=== PATIENT | female | born 1945 | race Caucasian/White ===

== ENCOUNTER 2017-03-26 17:03 | Inpatient (IN) ==
[2017-03-26] MEDS ORDERED: GLUCAGON 1 MG VIAL IM PRN (17:16)
[2017-03-26] MEDS ORDERED: DEXTROSE 50% 25 GM/50 ML VIAL IV PRN (17:16)
--- NOTE | 2017-03-26 17:16 | Cardiothoracic History & Phys ---
History of Present Illness Chief complaint: Chest pain History of present illness: Ms. George is a 71 year old female who presented to [facility] emergency room with chief complaint of chest discomfort. Several months ago she underwent cardiac catheterization by Dr. Lackey who notified two-vessel coronary disease involving the left main and the right posterior descending coronary artery and the patient was considered for bypass surgery but medical therapy was elected at that time. She subsequently had 2 further episodes of chest discomfort but today was more severe. She was admitted to the emergency room where Dr. Lackey was contacted and recommended surgical bypass. Patient is to be admitted for that purpose. Past medical history is significant in that the patient has a history of hypertension and diabetes mellitus she otherwise has been in remarkably good general health. Social history the patient is and lives with her family she does not smoke cigarettes and she has allergies to Augmentin and nonsteroidal anti-inflammatory drugs which cause stomach discomfort. She is also thought to be allergic to Cipro and to sulfa drugs. Her review of systems is noncontributory to the present illness. Physical examination: Patient is well-developed well-nourished white female in no acute distress. Examination of the head eyes ears nose and throat show the pupils are equal react to light and extraocular motions are intact. The oropharynx is benign. Examination of the neck shows that there are no masses and there is no thyromegaly and there are no bruits. Examination chest is clear to percussion and auscultation. Examination of heart shows regular sinus rhythm and there are no murmurs. Examination of the abdomen shows no tenderness and there are no masses or organomegaly palpated. Examination of the extremities shows no cyanosis or edema and the neurological examination is grossly within normal limits. Assessment is coronary artery disease. Plan: Coronary bypass surgery Wednesday.
[2017-03-26] MEDS ORDERED: AMITRIPTYLINE 10 MG TABLET PO PRN (17:27)
[2017-03-26] MEDS ORDERED: NITROGLYCERIN SL 0.4 MG TABLET SL PRN (17:29)
[2017-03-26] MEDS: EZETIMIBE 10 MG TABLET PO SCH (22:11)
[2017-03-26] MEDS: CARVEDILOL 3.125 MG TABLET PO SCH (22:11)
[2017-03-26] MEDS: CEFUROXIME 250 MG TABLET PO SCH (22:12)
[2017-03-26] MEDS: FLUTICASONE 50 MCG NASAL SPRAY 16 GM BOTTLE BOTH NARES SCH (22:12)
[2017-03-26] MEDS: SODIUM CHLORIDE 0.9% 1,000 ML IV SCH (22:12)
[2017-03-26] MEDS: LOSARTAN 50 MG TABLET PO SCH (22:13)
[2017-03-26] MEDS: CHLORHEXIDINE 0.12% ORAL RINSE 60 ML BOTTLE SWISH/SPIT SCH (22:13)
[2017-03-27 03:29] LABS: ABG Base Excess 0.9 MMOL/L (-2.5-2.5); ABG HCO3 25.2 MMOL/L (20-26); ABG Oxygen Saturation 97.1 % (95-100); ABG PCO2 42.3 MM HG (35-48); ABG PH 7.395 (7.35-7.45); ABG PO2 91.2 MM HG (80-95); ABG TCO2 23.2 MMOL/L (23-27); Allen Test Positive; Pt O2 Delivery Device Room Air
[2017-03-27 04:21] LABS: Basophils % 0.4 % (0.0-0.8); Eosinophils # 0.3 10*3/uL (0.0-0.87); Eosinophils % 3.7 % (0.00-10.9); Hematocrit 31.8 VOL% (35.7-47.0); Immature Granulocytes % 0.1 %; Immature Granulocytes Absolute 0.01 #; Lymphocytes # 2.1 10*3/uL (1.4-4.0); Lymphocytes % 31.6 % (21.3-54.2); Mean Corpuscular HGB Conc 34.6 GM/DL (32-36); Mean Corpuscular Hemoglobin 32 PG (27-34); Mean Corpuscular Volume 91.6 FL (87-102); Mean Platelet Volume 9.8 FL (9.6-12.0); Monocytes # 0.7 10*3/uL (0.11-0.8); Monocytes % 9.7 % (1.7-12.7); Neutrophils # 3.7 10*3/uL (1.4-7.4); Neutrophils % 54.5 % (38.7-73.9); Platelet Count 170 T/CUMM (130-400); Red Blood Count 3.47 MC/CUMM (3.8-5.5); Red Cell Distribution Width 12.8 % (9.3-17.3); White Blood Count 6.7 T/CUMM (4-12)
[2017-03-27 04:57] LABS: Albumin 3.5 G/DL (3.4-5.0); Bilirubin,Total 1.3 MG/DL (0.2-1.0); Calcium 8.9 MG/DL (8.5-10.1); Osmolality,Calculated 281.3 MOS/KG (273-304); Potassium 3.9 MMOL/L (3.5-5.1); Total Protein 6.5 G/DL (6.4-8.3)
--- NOTE | 2017-03-27 07:43 | EKG Report ---
Stationary ECG Study [facility] Test Date: 03/27/2017 7:42:58 AM Pat Name: KEVIN RECIO Department: Room: 262 Gender: F Cooling Room Attendant: : 1945 Requested by: Raúl Lopez Order Number: [id number] Reading MD: KATIE MASTERS Intervals [place] Rate: 57 P: 64 AL: 180 QRS: 55 QRSD: 122 T: 87 QT: 461 QTc: 456 Interpretive Statements SINUS RHYTHM MODERATE LEFT ATRIAL ABNORMALITY INTRAVENTRICULAR CONDUCTION DELAY NONSPECIFIC T-WAVE ABNORMALITY Electronically Signed On 03-27-17 08:28:30 CDT by KATIE MASTERS [email or web address]
--- NOTE | 2017-03-27 08:17 | Cardiothoracic Progress Note ---
Cardiothoracic Subjective Interval history: Patient is stable and pain-free. She is breathing comfortably. She is ready for surgery on Wednesday. Exam (Progress Note) - Constitutional Vitals: Period Temp Pulse Resp BP Sys/Campos Pulse Ox Last 24 Hr 96.8 F-98.5 F 59-67 16-18 117-136/58-74 93-97 Result/EKG - Labs CBC & BMP: 03/27/17 03:30 03/27/17 03:30 Labs: Laboratory Results - last 24 hr 03/26/17 03/27/17 03/27/17 20:27 03:05 03:30 WBC 6.7 RBC 3.47 L Hgb 11.0 L Hct 31.8 L MCV 91.6 MCH 32 MCHC 34.6 RDW 12.8 Plt Count 170 MPV 9.8 Neut % (Auto) 54.5 Lymph % (Auto) 31.6 [place] % (Auto) 9.7 Eos % (Auto) 3.7 Baso % (Auto) 0.4 Neut # (Auto) 3.7 Lymph # (Auto) 2.1 [place] # (Auto) 0.7 Eos # (Auto) 0.3 Baso # (Auto) 0.0 Immature Gran % 0.1 Nucleated RBC % 0.0 Immature Gran # 0.01 Nucleated RBCs # 0.00 ABG pH 7.395 ABG pCO2 42.3 ABG pO2 91.2 ABG HCO3 25.2 ABG Total CO2 23.2 ABG O2 Saturation 97.1 ABG Base Excess 0.9 FiO2 21.00 Sodium Potassium Chloride Carbon Dioxide Anion Gap BUN Creatinine GFR Calculation BUN/Creatinine Ratio Glucose POC Glucose 126 H Calculated Osmolality Calcium Total Bilirubin AST ALT Alkaline Phosphatase Total Protein Albumin Globulin Albumin/Globulin Ratio 03/27/17 03:30 WBC RBC Hgb Hct MCV MCH MCHC RDW Plt Count MPV Neut % (Auto) Lymph % (Auto) [place] % (Auto) Eos % (Auto) Baso % (Auto) Neut # (Auto) Lymph # (Auto) [place] # (Auto) Eos # (Auto) Baso # (Auto) Immature Gran % Nucleated RBC % Immature Gran # Nucleated RBCs # ABG pH ABG pCO2 ABG pO2 ABG HCO3 ABG Total CO2 ABG O2 Saturation ABG Base Excess FiO2 Sodium 141 Potassium 3.9 Chloride 107 Carbon Dioxide 24 Anion Gap 13.9 BUN 20 H Creatinine 0.90 GFR Calculation 67 BUN/Creatinine Ratio 22.00 H Glucose 67 L POC Glucose Calculated Osmolality 281.3 Calcium 8.9 Total Bilirubin 1.30 H AST 49 H ALT 47 Alkaline Phosphatase 86 Total Protein 6.5 Albumin 3.5 Globulin 3.0 Albumin/Globulin Ratio 1.1 Quality Measures - VTE Contraindication to Pharmacological VTE Prophylaxis: High Risk of Bleeding
[2017-03-27] MEDS ORDERED: ATORVASTATIN 40 MG TABLET PO SCH (09:00)
[2017-03-27] MEDS ORDERED: MELOXICAM 7.5 MG TABLET PO SCH (09:00)
--- NOTE | 2017-03-27 09:35 | XRay Report ---
Exam: Chest 2 views Date: March 27, 2017 at 6:51 AM Comparison: None Reason: CAD Findings: The cardiac silhouette is upper normal in size. No focal consolidation, pneumothorax or pleural effusion is identified. No acute osseous process is seen. Surgical clips are noted within the right upper abdomen. Impression: No acute cardiopulmonary process is identified. PROCEDURE INTERPRETED AT [facility] DEPARTMENT OF RADIOLOGY Final Report Signed by: Dr. Delbert Foley
[2017-03-27] MEDS: LINACLOTIDE 145 MCG CAPSULE PO SCH (09:48)
[2017-03-27] MEDS: CEFUROXIME 250 MG TABLET PO SCH ×2 (09:49→21:27)
[2017-03-27] MEDS: GLIMEPIRIDE 4 MG TABLET PO SCH ×2 (09:49→17:54)
[2017-03-27] MEDS: ASPIRIN EC 81 MG TABLET PO SCH (09:49)
[2017-03-27] MEDS: ISOSORBIDE MONONITRATE 30 MG TABLET PO SCH (09:49)
[2017-03-27] MEDS: LOSARTAN 50 MG TABLET PO SCH ×2 (09:49→21:27)
[2017-03-27] MEDS: CHLORHEXIDINE 0.12% ORAL RINSE 60 ML BOTTLE SWISH/SPIT SCH ×2 (09:50→21:27)
[2017-03-27] MEDS: FLUTICASONE 50 MCG NASAL SPRAY 16 GM BOTTLE BOTH NARES SCH ×3 (09:50→21:29)
[2017-03-27] MEDS: CARVEDILOL 3.125 MG TABLET PO SCH ×2 (09:50→21:27)
--- NOTE | 2017-03-27 14:10 | Hospitalist Consult Note ---
Assessment and Plan (1) DM2 (diabetes mellitus, type 2) Status: Chronic Assessment and plan: The patient will continue her usual home regimen for now. On Wednesday the patient will start on insulin infusion postoperatively and then transition to subcutaneous insulin once she is taking food again after her surgery. Current Visit: Yes Qualifiers: Diabetes mellitus complication status: with circulatory complication Diabetes mellitus complication detail: with other circulatory complications Diabetes mellitus alf insulin use: with terminal manager use Qualified Code(s) : E11.59 - Type 2 diabetes mellitus with other circulatory complications; Z79.4 - group home (current) use of insulin (2) CAD (coronary artery disease) Status: Acute Current Visit: Yes History of Present Illness - Data of Consult Requesting Physician: Raúl Lakhani - Consult Narrative Reason for consult: Hyperglycemia History of present illness: Ms. George is a 71 year old female the patient has diabetes mellitus type 2 and takes long-acting insulin at night with antidiabetic medications in the daytime. The patient's glucose was well controlled and she anticipates coronary artery bypass grafting on Wednesday. CC: Raúl Lakhani MD - Home Medications and Allergies Home Medications: Home Medications Medication Instructions Recorded Confirmed Type Amitriptyline [Elavil] 10 mg PO BEDTIME 03/26/17 03/26/17 History Aspirin [Aspirin EC] 81 mg PO DAILY 03/26/17 03/27/17 History Atorvastatin [Lipitor] 40 mg PO BEDTIME 03/26/17 03/26/17 History Carvedilol [Coreg] 3.125 mg PO BID 03/26/17 03/26/17 History Cholecalciferol (Vitamin D3) 1,000 unit PO DAILY 03/26/17 03/27/17 History [Vitamin D3] Clopidogrel [Plavix] 75 mg PO DAILY 03/26/17 03/26/17 History Ezetimibe 10 mg PO DAILY 03/26/17 03/27/17 History Fluticasone 50 Mcg Nasal [place] 2 sprays ONE NARE DAILY PRN 03/26/17 03/27/17 History [Flonase Nasal [place]] Glimepiride 4 mg PO BID 03/26/17 03/27/17 History Insulin Detemir [Levemir] 20 units SUBCUT DAILY 03/26/17 03/27/17 History Isosorbide Mononitrate [Imdur] 30 mg PO DAILY 03/26/17 03/27/17 History Linaclotide [Linzess] 1 - 2 capsule PO DAILY 03/26/17 03/27/17 History Losartan [Cozaar] 50 mg PO BID 03/26/17 03/26/17 History Meloxicam 7.5 mg PO QOTHER DAY 03/26/17 03/27/17 History Nitroglycerin [Nitroglycerin SL 0.4 mg SL DIRECTED PRN 03/26/17 03/27/17 History Tab] [place] 3 Acid Ethyl Esters [Lovaza] 1 gm PO BID 03/26/17 03/26/17 History Promethazine Tab [Phenergan Tab] 25 mg PO Q4HR PRN 03/26/17 03/27/17 History cefUROXime axetil [Cefuroxime] 250 mg PO BID 03/26/17 03/27/17 History Allergies/Adverse Reactions: Allergies Allergy/AdvReac Type Severity Reaction Status Date / Time Amoxicillin [From Augmentin] Allergy HIVES Verified 03/26/17 18:50 ciprofloxacin [From Cipro] Allergy HIVES Verified 03/26/17 18:50 clavulanic acid Allergy HIVES Verified 03/26/17 18:50 [From Augmentin] NSAIDS (Non-Steroidal Allergy Abdominal Verified 03/26/17 18:50 Anti-Inflamma Pain dicyclomine AdvReac ANAPHYLAXIS Verified 03/26/17 18:50 Sulfa (Sulfonamide AdvReac HIVES Verified 03/26/17 18:39 Antibiotics) Medical,Surgical,& Family Hx - Medical History Cardio: History of: CAD, Hypertension, [place] Endocrine: History of: Diabetes Mellitus (NIDDM) Gastrointestinal: History of: Diverticulitis/ Diverticulosis Musculoskeletal: History of: Osteoporosis - Surgical History Cardiac Surgeries: Sugical HX of: Cardiac Catheterization HEENT Surgeries: Surgical HX of: Tonsilectomy & Adenoidectomy Patient denies: Eye Surgery Abdominal Surgeries: Surgical HX of: Abdominal Surgery (colon surgery), Appendectomy, Cholecystectomy Reproductive Surgeries: Surgical HX of;: Hysterectomy Orthopedic Surgeries: Surgical HX of;: Total Knee Replacement - Family History Family History: Reports;: Family Diabetes, Family Heart Disease, Family Hypertension, Family Stroke Denies;: Family Anesthesia Reaction, Family Cancer, Family Hematology - Social History Smoking Status: Never smoker Frequency of Alcohol Use: None Type of Drug Use: None Marital Status: Lives With:: Spouse Functional capacity: independent ambulation 12 point system: reviewed and no additional remarkable complaints except as stated Exam - Constitutional Vitals: Period Temp Pulse Resp BP Sys/Campos Pulse Ox Last 24 Hr 96.7 F-98.5 F 59-67 16-18 117-149/58-74 93-97 Exam: Constitutional System: No distress. No tremulousness. Head: Normocephalic, atraumatic. Ears, Nose and Throat System: No evidence of Otitis or Mastoiditis. No epistaxis or discharge Eyes System: Pupils equal, round, and reactive. Extraocular muscles intact. Neck: Supple, without adenopathy, No jugular venous distention. No thyromegaly , neck mass, or prior surgery apparent. Respiratory System: Chest clear to auscultation. Cardiovascular System: Heart with regular rate and rhythm. No murmur. GI System: Abdomen soft, nontender. Normo active bowel sounds present. Musculoskeletal System: limbs with no pedal edema. Full distal pulses. Neurological System: No discernable sensory deficit. No aphasia Psychiatric System: Conversation is rational Results - Labs CBC & BMP: 03/27/17 03:30 03/27/17 03:30 Lab Results: I have reviewed the past 24 hour labs Quality Measures - VTE Contraindication to Pharmacological VTE Prophylaxis: High Risk of Bleeding
[2017-03-27] MEDS: SODIUM CHLORIDE 0.9% 1,000 ML IV SCH (17:55)
[2017-03-27] MEDS: MELOXICAM 7.5 MG TABLET PO SCH (21:27)
[2017-03-27] MEDS: EZETIMIBE 10 MG TABLET PO SCH (21:27)
[2017-03-27] MEDS: ATORVASTATIN 40 MG TABLET PO SCH (21:27)
--- NOTE | 2017-03-28 08:00 | Cardiothoracic Progress Note ---
Cardiothoracic Subjective Interval history: Ready for surgery in the morning. Exam (Progress Note) - Constitutional Vitals: Period Temp Pulse Resp BP Sys/Campos Pulse Ox Last 24 Hr 97.2 F-98.2 F 60-71 16-20 130-149/65-97 90-97 Result/EKG - Labs CBC & BMP: 03/27/17 03:30 03/27/17 03:30 Labs: Laboratory Results - last 24 hr 03/27/17 03/27/17 03/27/17 07:37 12:00 16:37 POC Glucose 99 177 H 151 H 03/27/17 21:58 POC Glucose 184 H Quality Measures - VTE Contraindication to Pharmacological VTE Prophylaxis: High Risk of Bleeding
[2017-03-28] MEDS: LOSARTAN 50 MG TABLET PO SCH ×2 (09:28→21:32)
[2017-03-28] MEDS: GLIMEPIRIDE 4 MG TABLET PO SCH ×2 (09:28→17:11)
[2017-03-28] MEDS: ASPIRIN EC 81 MG TABLET PO SCH (09:28)
[2017-03-28] MEDS: CARVEDILOL 3.125 MG TABLET PO SCH ×2 (09:28→21:32)
[2017-03-28] MEDS: ISOSORBIDE MONONITRATE 30 MG TABLET PO SCH (09:28)
[2017-03-28] MEDS: CEFUROXIME 250 MG TABLET PO SCH ×2 (09:29→21:32)
[2017-03-28] MEDS: CHLORHEXIDINE 0.12% ORAL RINSE 60 ML BOTTLE SWISH/SPIT SCH ×2 (09:29→21:33)
[2017-03-28] MEDS: FLUTICASONE 50 MCG NASAL SPRAY 16 GM BOTTLE BOTH NARES SCH ×2 (09:29→21:34)
[2017-03-28] MEDS: LINACLOTIDE 145 MCG CAPSULE PO SCH (09:29)
--- NOTE | 2017-03-28 10:28 | Hospitalist Progress Note ---
Assessment and Plan (1) DM2 (diabetes mellitus, type 2) Status: Chronic Assessment and plan: The patient will continue her usual home regimen for now. I started the patient on sliding scale insulin today. The patient will start on insulin infusion postoperatively and then transition to subcutaneous insulin once she is taking food again after her surgery. Current Visit: Yes Qualifiers: Diabetes mellitus complication status: with circulatory complication Diabetes mellitus complication detail: with other circulatory complications Diabetes mellitus fdc insulin use: with terminal manager use Qualified Code(s) : E11.59 - Type 2 diabetes mellitus with other circulatory complications; Z79.4 - rat exterminator (current) use of insulin (2) CAD (coronary artery disease) Status: Acute Current Visit: Yes Hospitalist: Subjective Interval history: The patient has no new events today. Glucose has begun to increase after Metformin was discontinued Exam - Constitutional Vitals: Period Temp Pulse Resp BP Sys/Campos Pulse Ox Last 24 Hr 97.2 F-98.4 F 60-71 16-20 129-149/63-97 90-97 Exam: Constitutional System: No distress. No tremulousness. Head: Normocephalic, atraumatic. Ears, Nose and Throat System: No evidence of Otitis or Mastoiditis. No epistaxis or discharge Eyes System: Pupils equal, round, and reactive. Extraocular muscles intact. Neck: Supple, without adenopathy, No jugular venous distention. No thyromegaly , neck mass, or prior surgery apparent. Respiratory System: Chest clear to auscultation. Cardiovascular System: Heart with regular rate and rhythm. No murmur. GI System: Abdomen soft, nontender. Normo active bowel sounds present. Musculoskeletal System: limbs with no pedal edema. Full distal pulses. Neurological System: No discernable sensory deficit. No aphasia Psychiatric System: Conversation is rational Results - Labs CBC & BMP: 03/27/17 03:30 03/27/17 03:30 Lab Results: I have reviewed the past 24 hour labs Quality Measures - VTE Contraindication to Pharmacological VTE Prophylaxis: High Risk of Bleeding
[2017-03-28] MEDS: INSULIN LISPRO 100 UNIT/ML SUBCUT SCH ×3 (12:19→21:34)
[2017-03-28] MEDS: CHLORHEXIDINE 4% SOLN 118 ML BOTTLE TOP SCH ×2 (15:00→21:34)
[2017-03-28] MEDS ORDERED: CEFUROXIME INJ 1,500 MG in SODIUM CHLORIDE 0.9% 100 ML IV ONE (17:16)
[2017-03-28] MEDS: ATORVASTATIN 40 MG TABLET PO SCH (21:32)
[2017-03-28] MEDS: EZETIMIBE 10 MG TABLET PO SCH (21:32)
[2017-03-28] MEDS: MELOXICAM 7.5 MG TABLET PO SCH (21:34)
[2017-03-28] MEDS: SODIUM CHLORIDE 0.9% 1,000 ML IV SCH (21:36)
[2017-03-29] MEDS: CHLORHEXIDINE 4% SOLN 118 ML BOTTLE TOP SCH ×2 (04:25→11:17)
[2017-03-29] MEDS ORDERED: TISSUE ADHESIVE 1 EACH APPLICATOR TOP ONE (04:37)
[2017-03-29] MEDS ORDERED: PAPAVERINE 60 MG/2 ML VIAL ONE (04:37)
[2017-03-29] MEDS ORDERED: VANCOMYCIN 1,000 MG VIAL ONE (04:38)
[2017-03-29 05:14] LABS: Basophils % 0.5 % (0.0-0.8); Eosinophils # 0.2 10*3/uL (0.0-0.87); Eosinophils % 3.4 % (0.00-10.9); Hematocrit 33.6 VOL% (35.7-47.0); Hemoglobin 11.7 GM/DL (12.0-16.0); Immature Granulocytes % 0.3 %; Immature Granulocytes Absolute 0.02 #; Lymphocytes # 2.4 10*3/uL (1.4-4.0); Lymphocytes % 36.3 % (21.3-54.2); Mean Corpuscular HGB Conc 34.8 GM/DL (32-36); Mean Corpuscular Hemoglobin 32 PG (27-34); Mean Corpuscular Volume 91.8 FL (87-102); Mean Platelet Volume 9.4 FL (9.6-12.0); Monocytes # 0.7 10*3/uL (0.11-0.8); Monocytes % 9.9 % (1.7-12.7); Neutrophils # 3.3 10*3/uL (1.4-7.4); Neutrophils % 49.6 % (38.7-73.9); Platelet Count 165 T/CUMM (130-400); Red Blood Count 3.66 MC/CUMM (3.8-5.5); Red Cell Distribution Width 12.9 % (9.3-17.3); White Blood Count 6.6 T/CUMM (4-12)
[2017-03-29] MEDS ORDERED: LORazepam 1 MG TABLET PO ONE (05:30)
[2017-03-29] MEDS ORDERED: FAMOTIDINE 20 MG TABLET PO ONE (05:30)
[2017-03-29 05:52] LABS: Calcium 8.7 MG/DL (8.5-10.1); Magnesium 1.8 MG/DL (1.8-2.4); Osmolality,Calculated 284.1 MOS/KG (273-304); Potassium 4.3 MMOL/L (3.5-5.1)
[2017-03-29] MEDS ORDERED: ISOSORBIDE MONONITRATE 30 MG TABLET PO ONE (06:00)
[2017-03-29] MEDS ORDERED: LOSARTAN 50 MG TABLET PO ONE (06:00)
[2017-03-29] MEDS ORDERED: CARVEDILOL 3.125 MG TABLET PO ONE (06:00)
[2017-03-29] MEDS ORDERED: CEFUROXIME INJ 1,500 MG in SODIUM CHLORIDE 0.9% 100 ML IV ONE (06:00)
[2017-03-29] MEDS ORDERED: ONDANSETRON 4 MG/2 ML VIAL IV ONE (06:04)
[2017-03-29] MEDS ORDERED: ONDANSETRON 4 MG/2 ML VIAL ONE (06:09)
--- NOTE | 2017-03-29 06:14 | Cardiothoracic Progress Note ---
Cardiothoracic Subjective Interval history: Patient is ready for surgery this morning. Exam (Progress Note) - Constitutional Vitals: Period Temp Pulse Resp BP Sys/Campos Pulse Ox Last 24 Hr 97.3 F-98.6 F 61-81 16-20 119-129/59-79 95-97 Result/EKG - Labs CBC & BMP: 03/29/17 05:06 03/29/17 05:06 Labs: Laboratory Results - last 24 hr 03/28/17 03/28/17 03/28/17 09:27 11:45 16:09 WBC RBC Hgb Hct MCV MCH MCHC RDW Plt Count MPV Neut % (Auto) Lymph % (Auto) [place] % (Auto) Eos % (Auto) Baso % (Auto) Neut # (Auto) Lymph # (Auto) [place] # (Auto) Eos # (Auto) Baso # (Auto) Immature Gran % Nucleated RBC % Immature Gran # Nucleated RBCs # Sodium Potassium Chloride Carbon Dioxide Anion Gap BUN Creatinine GFR Calculation BUN/Creatinine Ratio Glucose POC Glucose 197 H 162 H Calculated Osmolality Calcium Magnesium Blood Type A NEGATIVE Antibody Screen Negative Crossmatch See Detail 03/28/17 03/28/17 03/28/17 16:12 16:15 21:28 WBC RBC Hgb Hct MCV MCH MCHC RDW Plt Count MPV Neut % (Auto) Lymph % (Auto) [place] % (Auto) Eos % (Auto) Baso % (Auto) Neut # (Auto) Lymph # (Auto) [place] # (Auto) Eos # (Auto) Baso # (Auto) Immature Gran % Nucleated RBC % Immature Gran # Nucleated RBCs # Sodium Potassium Chloride Carbon Dioxide Anion Gap BUN Creatinine GFR Calculation BUN/Creatinine Ratio Glucose POC Glucose 182 H 189 H Calculated Osmolality Calcium Magnesium Blood Type A NEGATIVE Antibody Screen Crossmatch 03/29/17 03/29/17 03/29/17 05:06 05:06 05:35 WBC 6.6 RBC 3.66 L Hgb 11.7 L Hct 33.6 L MCV 91.8 MCH 32 MCHC 34.8 RDW 12.9 Plt Count 165 MPV 9.4 L Neut % (Auto) 49.6 Lymph % (Auto) 36.3 [place] % (Auto) 9.9 Eos % (Auto) 3.4 Baso % (Auto) 0.5 Neut # (Auto) 3.3 Lymph # (Auto) 2.4 [place] # (Auto) 0.7 Eos # (Auto) 0.2 Baso # (Auto) 0.0 Immature Gran % 0.3 Nucleated RBC % 0.0 Immature Gran # 0.02 Nucleated RBCs # 0.00 Sodium 142 Potassium 4.3 Chloride 108 H Carbon Dioxide 27 Anion Gap 11.3 BUN 16 Creatinine 1.00 GFR Calculation 59 BUN/Creatinine Ratio 16.00 Glucose 115 H POC Glucose 109 H Calculated Osmolality 284.1 Calcium 8.7 Magnesium 1.8 Blood Type Antibody Screen Crossmatch Quality Measures - VTE Contraindication to Pharmacological VTE Prophylaxis: High Risk of Bleeding
[2017-03-29] MEDS ORDERED: ETOMIDATE 20 MG/10 ML VIAL IV ONE (06:46)
[2017-03-29] MEDS ORDERED: VECURONIUM 10 MG VIAL IV ONE (06:46)
[2017-03-29] MEDS ORDERED: AMINOCAPROIC ACID 5,000 MG/20 ML VIAL IV ONE (06:46)
[2017-03-29] MEDS ORDERED: NITROGLYCERIN 50 MG/250 ML BOTTLE IV ONE (06:46)
[2017-03-29] MEDS ORDERED: CALCIUM CHLORIDE 1,000 MG/10 ML SYRINGE IV ONE (06:46)
[2017-03-29] MEDS ORDERED: PHENYLEPHRINE 20 MG/250 ML PREMIX IV ONE (06:46)
[2017-03-29 07:31] LABS: ABG Base Excess -2.8 MMOL/L (-2.5-2.5); ABG HCO3 22.1 MMOL/L (20-26); ABG Oxygen Saturation 99.9 % (95-100); ABG PCO2 40.3 MM HG (35-48); ABG PH 7.355 (7.35-7.45); ABG TCO2 20.3 MMOL/L (23-27); Glucose Heart Surgery 111 MG/DL (74-106); Hematocrit Heart Surgery 34.1 PERCENT (37-47); PCO2 Patient Temp Arterial 40.3 MMHG; PH Patient Temp Arterial 7.355; Patient Temperature 37 CELCIUS; Potassium Heart/CVR 3.9 MMOL/L (3.5-5.1); Sodium Heart/CVR 140 MMOL/L (135-145)
[2017-03-29 07:55] LABS: Apearance,Urine CLEAR (Clear); Bilirubin,Urine Negative (Negative); Blood, Urine Negative (Negative); Glucose,Urine (UA) Negative (Negative); Ketones,Urine Negative (Negative); Mucus,Urine Occasional /LPF (Occasional); Nitrite,Urine Negative (Negative); Protein,Urine Negative; RBC,Urine <1 /HPF (0-4); Squamous Epithelial Cell,Urine Occasional /HPF (0-10); Urine Color Straw (Yellow); Urine Specific Gravity 1.006 (1.001-1.035); Urine Urobilinogen < 2.0 EU/DL (0.2-1.0); WBC,Urine <1 /HPF (0-6)
[2017-03-29] MEDS ORDERED: NITROPRUSSIDE 50 MG/2 ML VIAL ONE (08:24)
[2017-03-29] MEDS ORDERED: POTASSIUM CHLORIDE RIDER 100 ML IV ONE (08:25)
[2017-03-29] MEDS ORDERED: ALBUMIN 5% 12.5 GM/250 ML VIAL IV ONE (08:25)
[2017-03-29] MEDS ORDERED: PHENYLEPHRINE DRIP 40 MG/250 ML PREMIX IV ONE (08:25)
[2017-03-29 08:52] LABS: Hematocrit Heart Surgery 21.4 PERCENT (37-47); Hemoglobin Heart Surgery 6.8 G/DL (12.0-16.0); PCO2 Patient Temp Venous 36.9 MM HG; PH Patient Temp Venous 7.414; PO2 Patient Temp Venous 41.3 MM HG; Potassium Heart/CVR 5.1 MMOL/L (3.5-5.1); VBG Base Excess -0.5 MEQ/L (0-4); VBG HCO3 23.9 MEQ/L (24-28); VBG Oxygen Saturation 86.2 %; VBG PCO2 42.7 MMHG (41-51); VBG PH 7.37; VBG PO2 50.6 MMHG (17-40)
[2017-03-29] MEDS ORDERED: INSULIN REGULAR 100 UNIT/ML ONE (09:04)
[2017-03-29] MEDS ORDERED: INSULIN REGULAR DRIP 100 ML IV ONE (09:06)
[2017-03-29 09:28] LABS: Hematocrit Heart Surgery 23.8 PERCENT (37-47); Hemoglobin Heart Surgery 7.6 G/DL (12.0-16.0); PCO2 Patient Temp Venous 35.3 MM HG; PH Patient Temp Venous 7.43; PO2 Patient Temp Venous 36.5 MM HG; Potassium Heart/CVR 4.8 MMOL/L (3.5-5.1); VBG Base Excess -0.4 MEQ/L (0-4); VBG HCO3 23.8 MEQ/L (24-28); VBG Oxygen Saturation 78.7 %; VBG PCO2 38.9 MMHG (41-51); VBG PH 7.401
[2017-03-29 09:49] LABS: ABG Base Excess -1.4 MMOL/L (-2.5-2.5); ABG HCO3 23.3 MMOL/L (20-26); ABG PCO2 35.4 MM HG (35-48); ABG PH 7.416 (7.35-7.45); ABG TCO2 21.1 MMOL/L (23-27); Glucose Heart Surgery 271 MG/DL (74-106); Hematocrit Heart Surgery 26.7 PERCENT (37-47); Hemoglobin Heart Surgery 8.6 G/DL (12.0-16.0); Ionized Calcium Arterial 1.18 MMOL/L (1.21-1.46); PCO2 Patient Temp Arterial 35.4 MMHG; PH Patient Temp Arterial 7.416; Patient Temperature 37 CELCIUS; Potassium Heart/CVR 3.9 MMOL/L (3.5-5.1); Sodium Heart/CVR 132 MMOL/L (135-145)
[2017-03-29] MEDS ORDERED: CALCIUM CHLORIDE 1,000 MG/10 ML SYRINGE IV PRN (10:23)
[2017-03-29] MEDS ORDERED: DEXTROSE 50% 25 GM/50 ML VIAL IV PRN ×2 (10:23)
[2017-03-29] MEDS ORDERED: NITROPRUSSIDE 100 MG in DEXTROSE 5% 250 ML IV PRN (10:23)
[2017-03-29] MEDS ORDERED: MORPHINE 10 MG/1 ML VIAL IV PRN (10:23)
[2017-03-29] MEDS ORDERED: ACETAMINOPHEN 650 MG SUPP RECTAL PRN (10:23)
[2017-03-29] MEDS ORDERED: INSULIN REGULAR 100 UNIT/ML IV ONE (10:23)
[2017-03-29] MEDS ORDERED: MIDAZOLAM 2 MG/2 ML VIAL IV PRN (10:23)
[2017-03-29] MEDS ORDERED: PHENYLEPHRINE DRIP 40 MG/250 ML PREMIX IV PRN (10:23)
[2017-03-29] MEDS ORDERED: VECURONIUM 10 MG VIAL IV PRN ×2 (10:23)
[2017-03-29] MEDS ORDERED: MAGNESIUM SULF RIDER 4 GM in PREMIX 1 EACH IV PRN (10:23)
[2017-03-29] MEDS ORDERED: MIDAZOLAM 10 MG/2 ML VIAL IV PRN (10:23)
[2017-03-29] MEDS ORDERED: ONDANSETRON 4 MG/2 ML VIAL IV PRN (10:23)
[2017-03-29] MEDS ORDERED: INSULIN REGULAR 100 UNIT/ML IV PRN (10:23)
[2017-03-29] MEDS ORDERED: LACTATED RINGERS 250 ML IV PRN (10:23)
[2017-03-29] MEDS ORDERED: MAGNESIUM SULF RIDER 2 GM in PREMIX 1 EACH IV PRN (10:23)
[2017-03-29] MEDS ORDERED: PROTAMINE SULFATE 50 MG/5 ML VIAL IV ONE ×2 (10:24→10:54)
[2017-03-29] MEDS ORDERED: SUFentanil 250 MCG/5 ML AMP ONE (10:29)
[2017-03-29] MEDS ORDERED: SODIUM CHLORIDE 0.9% 250 ML IV ONE (10:29)
[2017-03-29] MEDS ORDERED: ePHEDrine 50 MG/ML AMP ONE (10:29)
[2017-03-29] MEDS ORDERED: SEVOFLURANE 1 UNIT/15 MINUTE INH ONE (10:29)
[2017-03-29] MEDS ORDERED: SODIUM CHLORIDE 0.9% 1,000 ML IV ONE (10:29)
--- NOTE | 2017-03-29 10:29 | Operative Note ---
Date of procedure: 03/29/17 Pre-op diagnosis: Coronary artery disease Post-op diagnosis: same Procedure: Procedure: Coronary bypass grafting 2 with a left internal mammary graft to the anterior descending coronary artery the saphenous vein graft to the posterior descending coronary artery. Findings: The patient is a 71-year-old lady who was admitted to [facility] with substernal chest discomfort. She had undergone catheterization some 5 months prior to her admission which had shown significant coronary disease but medical treatment was elected. Because of recurrence of chest pain patient was advised to have bypass surgery. The time of surgery left ventricular function was noted to be essentially within normal limits. The left internal mammary was grafted to a large anterior descending coronary artery which was free of disease at the site of anastomosis. Saphenous vein graft was placed to the right posterior descending coronary artery which likewise was a large vessel free of disease at the site of anastomosis. Patient tolerated procedure well and was returned to recovery in satisfactory condition. Procedure: Patient was brought to the operating room placed on the operating table in the supine position. After satisfactory induction of general anesthesia the chest abdomen and legs were prepped and draped in sterile fashion. Greater saphenous vein was harvested from the right lower leg and prepared is an arterial graft. Incision in the leg was closed with 3-0 Monocryl in the subcutaneous tissue and 3-0 subcuticular Monocryl. Standard sternotomy incision was made and the sternum was divided and the heart suspended in a pericardial cradle. The left internal mammary was dissected free from its position in the anterior chest wall and prepared is an arterial graft. Patient was prepared for cardiopulmonary bypass with systemic heparinization cannulation of the ascending aorta and right atrium. Cardiopulmonary bypass was begun and the aorta was crossclamped and the heart arrested with cardioplegia solution injected into the aortic root. Heart was protected during the period of crossclamping with topical saline slush. Distal anastomoses were constructed as noted above and then the aorta was unclamped reestablishing cardiac action. The proximal anastomosis was constructed between the inflow end of the saphenous vein graft in the ascending aorta. Following this the patient was weaned from cardiopulmonary bypass without difficulty and heparin effect reversed with protamine. Decannulation was carried out in a defects in the ascending aorta and right atrium closed with 3- 0 Prolene. Operative field was inspected for hemostasis and this was considered adequate incision was closed with interrupted stainless steel wire and the sternum 0 Monopril in the presternal fascia and 3-0 subcuticular Monocryl. 2 chest tubes were left in the anterior mediastinum and brought out through separate stab incisions. Sterile dressings were applied the patient was returned to recovery in satisfactory condition. Anesthesia: SYLVIEA Surgeon / Physician: Raúl Lakhani Estimated blood loss: other (Unable to determine because of cardiopulmonary bypass) Condition: stable Disposition: ICU Results - Labs CBC & BMP: 03/29/17 09:48 03/29/17 05:06 Discharge Plan - Discharge Medications No Action [place] 3 Acid Ethyl Esters [Lovaza] 1 gm PO BID Losartan [Cozaar] 50 mg PO BID Clopidogrel [Plavix] 75 mg PO DAILY Carvedilol [Coreg] 3.125 mg PO BID Atorvastatin [Lipitor] 40 mg PO BEDTIME cefUROXime axetil [Cefuroxime] 250 mg PO BID Promethazine Tab [Phenergan Tab] 25 mg PO Q4HR PRN PRN Reason: Nausea Meloxicam 7.5 mg PO QOTHER DAY Linaclotide [Linzess] 1 - 2 capsule PO DAILY Isosorbide Mononitrate [Imdur] 30 mg PO DAILY Insulin Detemir [Levemir] 20 units SUBCUT DAILY Fluticasone 50 Mcg Nasal [place] [Flonase Nasal [place]] 2 sprays ONE NARE DAILY PRN PRN Reason: Allergy Symptoms Ezetimibe 10 mg PO DAILY Cholecalciferol (Vitamin D3) [Vitamin D3] 1,000 unit PO DAILY Amitriptyline [Elavil] 10 mg PO BEDTIME Nitroglycerin [Nitroglycerin SL Tab] 0.4 mg SL DIRECTED PRN PRN Reason: Chest Pain Glimepiride 4 mg PO BID Aspirin [Aspirin EC] 81 mg PO DAILY - Follow Up or Referral - Forms/Instructions
[2017-03-29] MEDS ORDERED: SODIUM CHLORIDE 0.45% 1,000 ML IV SCH ×2 (10:30)
[2017-03-29] MEDS ORDERED: INSULIN REGULAR DRIP 100 ML IV SCH (10:30)
[2017-03-29] MEDS ORDERED: HEPARIN/NACL 0.9% 2 UNITS/ML 500 ML IV ONE (10:30)
[2017-03-29 10:55] LABS: ABG Base Excess -0.7 MMOL/L (-2.5-2.5); ABG HCO3 23.9 MMOL/L (20-26); ABG Oxygen Saturation 99.2 % (95-100); ABG PCO2 38.9 MM HG (35-48); ABG PH 7.398 (7.35-7.45); ABG TCO2 21.8 MMOL/L (23-27); Glucose Heart Surgery 229 MG/DL (74-106); Hematocrit Heart Surgery 31.2 PERCENT (37-47); Hemoglobin Heart Surgery 10.1 G/DL (12.0-16.0); Potassium Heart/CVR 3.3 MMOL/L (3.5-5.1)
[2017-03-29 10:57] LABS: Basophils % 0.2 % (0.0-0.8); Eosinophils # 0.1 10*3/uL (0.0-0.87); Eosinophils % 1.1 % (0.00-10.9); Hematocrit 27.7 VOL% (35.7-47.0); Hemoglobin 9.8 GM/DL (12.0-16.0); Immature Granulocytes % 0.7 %; Immature Granulocytes Absolute 0.08 #; Lymphocytes # 1.9 10*3/uL (1.4-4.0); Lymphocytes % 17.4 % (21.3-54.2); Mean Corpuscular HGB Conc 35.4 GM/DL (32-36); Mean Corpuscular Hemoglobin 32 PG (27-34); Mean Corpuscular Volume 91.1 FL (87-102); Mean Platelet Volume 9.5 FL (9.6-12.0); Monocytes # 0.7 10*3/uL (0.11-0.8); Monocytes % 6.2 % (1.7-12.7); Neutrophils % 74.4 % (38.7-73.9); Platelet Count 149 T/CUMM (130-400); Red Blood Count 3.04 MC/CUMM (3.8-5.5); Red Cell Distribution Width 12.9 % (9.3-17.3); White Blood Count 10.7 T/CUMM (4-12)
[2017-03-29] MEDS: POTASSIUM CHLORIDE RIDER 20 MEQ in PREMIX 1 EACH IV PRN ×5 (11:05→23:12)
[2017-03-29 11:09] LABS: INR 1.6; PT Patient Result 17.2 SECS; Partial Thromboplastin Time 30.3 SECS (0-40)
[2017-03-29] MEDS: ALBUMIN 5% 12.5 GM in PREMIX 1 EACH IV PRN ×2 (11:15→11:58)
[2017-03-29] MEDS: LOSARTAN 50 MG TABLET PO SCH (11:17)
[2017-03-29] MEDS: CHLORHEXIDINE 0.12% ORAL RINSE 60 ML BOTTLE SWISH/SPIT SCH ×2 (11:17→20:00)
[2017-03-29] MEDS: ISOSORBIDE MONONITRATE 30 MG TABLET PO SCH (11:17)
[2017-03-29] MEDS: FLUTICASONE 50 MCG NASAL SPRAY 16 GM BOTTLE BOTH NARES SCH (11:17)
[2017-03-29 11:27] LABS: Albumin 3.7 G/DL (3.4-5.0); Bilirubin,Total 1.2 MG/DL (0.2-1.0); Calcium 8.6 MG/DL (8.5-10.1); Magnesium 2.1 MG/DL (1.8-2.4); Osmolality,Calculated 284.5 MOS/KG (273-304); Potassium 3.4 MMOL/L (3.5-5.1); Total Protein 6.1 G/DL (6.4-8.3)
[2017-03-29 11:32] LABS: Hypochromasia Slight
[2017-03-29 11:36] LABS: CKMB % 7.3 %
[2017-03-29 11:39] LABS: Troponin I Only 3.2 NG/ML (0.00-0.045)
--- NOTE | 2017-03-29 12:05 | XRay Report ---
Portable chest Date: 03/29/2017 Clinical history: Line placement Comparison: 03/27/2017 Technique: Portable AP sitting chest Findings: The heart is minimally enlarged with interval median sternotomy. The endotracheal tube, nasogastric tube and mediastinal chest tubes are in satisfactory position. The tip of the right IJ CV line projects in the right atrium. No evidence for pneumothorax. Minimal edema/atelectasis. Prior cholecystectomy. Impression: Interval median sternotomy with support devices in satisfactory position. No definite pneumothorax. Minimal edema/atelectasis. PROCEDURE INTERPRETED AT [facility] DEPARTMENT OF RADIOLOGY Final Report Signed by: Dr. Roshni Kong
[2017-03-29 12:39] LABS: ABG Base Excess -1.3 MMOL/L (-2.5-2.5); ABG HCO3 23.4 MMOL/L (20-26); ABG Oxygen Saturation 99.4 % (95-100); ABG PCO2 41.3 MM HG (35-48); ABG PH 7.371 (7.35-7.45); ABG TCO2 22.1 MMOL/L (23-27); Glucose Heart Surgery 180 MG/DL (74-106); Hematocrit Heart Surgery 27.7 PERCENT (37-47); Hemoglobin Heart Surgery 8.9 G/DL (12.0-16.0); Potassium Heart/CVR 3.8 MMOL/L (3.5-5.1)
[2017-03-29] MEDS ORDERED: VANCOMYCIN INJ 1,000 MG in SODIUM CHLORIDE 0.9% 250 ML IV SCH (13:00)
--- NOTE | 2017-03-29 13:22 | Anesthesia Procedures ---
Anesthesia Procedures - Arterial Line Consent obtained arterial line: written consent Time out performed arterial line: Yes Size (Gauge): 20 Technique used arterial line: guide wire technique Post-Procedure: line sutured into place Patient tolerated procedure arterial line: well Complications art line: none Site: right
[2017-03-29] MEDS: POTASSIUM CHLORIDE RIDER 10 MEQ in PREMIX 1 EACH IV PRN ×2 (13:28→16:11)
[2017-03-29 14:12] LABS: ABG Base Excess 0.4 MMOL/L (-2.5-2.5); ABG HCO3 24.8 MMOL/L (20-26); ABG Oxygen Saturation 98.9 % (95-100); ABG PCO2 41.2 MM HG (35-48); ABG PH 7.396 (7.35-7.45); ABG TCO2 23.7 MMOL/L (23-27); Glucose Heart Surgery 155 MG/DL (74-106); Hematocrit Heart Surgery 24.2 PERCENT (37-47); Hemoglobin Heart Surgery 7.8 G/DL (12.0-16.0); Potassium Heart/CVR 3.9 MMOL/L (3.5-5.1)
[2017-03-29 15:33] LABS: Hematocrit 23.9 VOL% (35.7-47.0); Hemoglobin 8.3 GM/DL (12.0-16.0)
--- NOTE | 2017-03-29 16:00 | Hospitalist Progress Note ---
Assessment and Plan (1) DM2 (diabetes mellitus, type 2) Status: Chronic Assessment and plan: Continue sliding scale insulin and Accu-Cheks. 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 No acute events overnight. Case discussed with nursing staff. Labs reviewed. Seen postoperatively in cardiovascular recovery. Exam - Constitutional Vitals: Period Temp Pulse Resp BP Sys/Campos Pulse Ox Last 24 Hr 96.1 F-99.2 F 61-92 10-20 96-130/52-70 95-100 Exam: Patient is intubated and sedated. Chest tubes in place. Constitutional System: No distress. No tremulousness. Head: Normocephalic, atraumatic. Ears, Nose and Throat System: No pain or tenderness. No epistaxis or discharge Eyes System: Pupils equal, round, and reactive. Extraocular muscles intact. Neck: Supple, without adenopathy, No jugular venous distention. No thyromegaly, neck mass, or prior surgery apparent. Respiratory System: Chest clear to auscultation. Cardiovascular System: Heart with regular rate and rhythm. No murmur. GI System: Abdomen soft, nontender. Normo active bowel sounds present. Musculoskeletal System: limbs with no pedal edema. Full distal pulses. Neurological System: Unable to assess secondary to sedation Psychiatric System: Unable to assess secondary to sedation postoperatively Results - Labs CBC & BMP: 03/29/17 15:21 03/29/17 10:45 Lab Results: I have reviewed the past 24 hour labs Quality Measures - VTE Contraindication to Pharmacological VTE Prophylaxis: High Risk of Bleeding
--- NOTE | 2017-03-29 16:20 | XRay Report ---
Portable chest Date: 03/29/2017 Clinical history: Postop, evaluate for bleeding Comparison: 03/29/2017 Technique: Portable AP sitting chest Findings: Stable cardiomegaly with recent median sternotomy. The support devices are stable in position with no definite pneumothorax. Minimally larger left pleural effusion with adjacent atelectasis/edema. Impression: Status post median sternotomy with no definite pneumothorax. Stable supportive devices. Minimally larger small left pleural effusion with residual minimal atelectasis/edema at the lung bases. PROCEDURE INTERPRETED AT [facility] DEPARTMENT OF RADIOLOGY Final Report Signed by: Dr. oRshni Kong
[2017-03-29] MEDS ORDERED: SODIUM CHLORIDE 0.9% 250 ML IV PRN (16:34)
[2017-03-29] MEDS: KETOROLAC 30 MG/1 ML VIAL IV SCH ×3 (17:05→22:32)
[2017-03-29] MEDS: MORPHINE 2 MG/1 ML SYRINGE IV PRN (17:48)
[2017-03-29] MEDS: VANCOMYCIN INJ 1,000 MG in SODIUM CHLORIDE 0.9% 250 ML IV SCH (17:53)
[2017-03-29 18:10] LABS: Hemoglobin 10.6 GM/DL (12.0-16.0)
[2017-03-29] MEDS ORDERED: CEFUROXIME INJ 1,500 MG in SODIUM CHLORIDE 0.9% 100 ML IV SCH (18:24)
[2017-03-29 18:39] LABS: Calcium 8.6 MG/DL (8.5-10.1); Potassium 4.2 MMOL/L (3.5-5.1)
[2017-03-29 18:44] LABS: CKMB % 4.2 %
[2017-03-29 18:51] LABS: Troponin I Only 3.31 NG/ML (0.00-0.045)
[2017-03-29] MEDS ORDERED: FUROSEMIDE 40 MG/4 ML VIAL IV PRN (20:26)
[2017-03-29 23:04] LABS: ABG Base Excess 0.8 MMOL/L (-2.5-2.5); ABG Oxygen Saturation 97.5 % (95-100); ABG PCO2 38.4 MM HG (35-48); ABG PH 7.431 (7.35-7.45); ABG PO2 101.4 MM HG (80-95); ABG TCO2 26.2 MMOL/L (23-27); Glucose Heart Surgery 100 MG/DL (74-106); Potassium Heart/CVR 3.8 MMOL/L (3.5-5.1)
[2017-03-30] MEDS: POTASSIUM CHLORIDE RIDER 10 MEQ in PREMIX 1 EACH IV PRN (00:18)
[2017-03-30 03:11] LABS: ABG Base Excess 0.5 MMOL/L (-2.5-2.5); ABG HCO3 23.3 MMOL/L (20-26); ABG Oxygen Saturation 97.3 % (95-100); ABG PCO2 31.5 MM HG (35-48); ABG PH 7.486 (7.35-7.45); ABG PO2 92.7 MM HG (80-95); ABG TCO2 24.2 MMOL/L (23-27); Basophils % 0.1 % (0.0-0.8); Glucose Heart Surgery 136 MG/DL (74-106); Hematocrit 33.1 VOL% (35.7-47.0); Hemoglobin 11.3 GM/DL (12.0-16.0); Hemoglobin Heart Surgery 11.9 G/DL (12.0-16.0); Immature Granulocytes % 0.4 %; Immature Granulocytes Absolute 0.06 #; Lymphocytes # 0.8 10*3/uL (1.4-4.0); Lymphocytes % 5.5 % (21.3-54.2); Mean Corpuscular HGB Conc 34.1 GM/DL (32-36); Mean Corpuscular Hemoglobin 30 PG (27-34); Mean Corpuscular Volume 88.3 FL (87-102); Mean Platelet Volume 10.3 FL (9.6-12.0); Monocytes # 0.5 10*3/uL (0.11-0.8); Monocytes % 3.4 % (1.7-12.7); Neutrophils # 12.6 10*3/uL (1.4-7.4); Neutrophils % 90.6 % (38.7-73.9); Platelet Count 151 T/CUMM (130-400); Potassium Heart/CVR 4.2 MMOL/L (3.5-5.1); Red Blood Count 3.75 MC/CUMM (3.8-5.5); Red Cell Distribution Width 15.5 % (9.3-17.3); White Blood Count 13.9 T/CUMM (4-12)
[2017-03-30 03:39] LABS: Albumin 3.5 G/DL (3.4-5.0); Bilirubin,Direct 0.3 MG/DL (0.0-0.20); Bilirubin,Total 1.1 MG/DL (0.2-1.0); Calcium 8.7 MG/DL (8.5-10.1); Magnesium 1.5 MG/DL (1.8-2.4); Potassium 4.3 MMOL/L (3.5-5.1)
[2017-03-30 03:43] LABS: CKMB % 4.3 %
[2017-03-30 03:46] LABS: Troponin I Only 2.29 NG/ML (0.00-0.045)
[2017-03-30] MEDS: MORPHINE 2 MG/1 ML SYRINGE IV PRN (03:58)
[2017-03-30] MEDS: KETOROLAC 30 MG/1 ML VIAL IV SCH ×4 (04:01→21:33)
[2017-03-30 04:05] LABS: Lymphocytes 7 % (20-55); Platelet Estimate Adequate; Segmented Neutrophils 90 % (50-85); Total Cells Counted 100
[2017-03-30 04:32] LABS: ABG HCO3 23.5 MMOL/L (20-26); ABG Oxygen Saturation 94.5 % (95-100); ABG PCO2 40.4 MM HG (35-48); ABG PH 7.381 (7.35-7.45); ABG PO2 72.1 MM HG (80-95); ABG TCO2 21.5 MMOL/L (23-27); Glucose Heart Surgery 140 MG/DL (74-106); Hematocrit Heart Surgery 35.5 PERCENT (37-47); Hemoglobin Heart Surgery 11.5 G/DL (12.0-16.0)
[2017-03-30] MEDS: VANCOMYCIN INJ 1,000 MG in SODIUM CHLORIDE 0.9% 250 ML IV SCH (06:12)
[2017-03-30] MEDS ORDERED: FUROSEMIDE 40 MG/4 ML VIAL IV ONE (06:27)
[2017-03-30] MEDS: POTASSIUM CHLORIDE RIDER 20 MEQ in PREMIX 1 EACH IV PRN (06:36)
--- NOTE | 2017-03-30 07:31 | EKG Report ---
Stationary ECG Study [facility] Test Date: 03/30/2017 7:31:43 AM Pat Name: KEVIN RECIO Department: Room: 104 Gender: F Change Person: ROBERT : 1945 Requested by: Raúl Lopez Order Number: [id number] Reading MD: MICHEL FLORES Intervals [place] Rate: 72 P: 72 [place]: 155 QRS: 93 QRSD: 109 T: 92 QT: 409 QTc: 433 Interpretive Statements SINUS RHYTHM BORDERLINE RIGHT AXIS DEVIATION Electronically Signed On 04-04-17 23:00:20 CDT by MICHEL FLORES [email or web address]
[2017-03-30] MEDS ORDERED: POTASSIUM CHLORIDE 20 MEQ TABLET PO PRN (08:00)
[2017-03-30] MEDS ORDERED: GLUCAGON 1 MG VIAL IM PRN ×2 (08:00)
[2017-03-30] MEDS ORDERED: MAGNESIUM SULF RIDER 4 GM in PREMIX 1 EACH IV PRN (08:00)
[2017-03-30] MEDS ORDERED: MAGNESIUM HYDROXIDE SUSP 30 ML UDCUP PO PRN (08:00)
[2017-03-30] MEDS ORDERED: MAGNESIUM SULF RIDER 2 GM in PREMIX 1 EACH IV PRN (08:00)
[2017-03-30] MEDS ORDERED: DEXTROSE 50% 25 GM/50 ML VIAL IV PRN ×2 (08:00)
[2017-03-30] MEDS ORDERED: ONDANSETRON 4 MG/2 ML VIAL IV PRN (08:00)
[2017-03-30] MEDS ORDERED: ALUMINUM/MAGNES/SIMETH MAX STR 30 ML UDCUP PO PRN (08:00)
[2017-03-30] MEDS ORDERED: ZALEPLON 5 MG CAPSULE PO PRN (08:00)
[2017-03-30] MEDS: SODIUM CHLOR 0.45% KCL 20 MEQ 20 MEQ/1,000 ML BAG IV SCH (08:26)
--- NOTE | 2017-03-30 08:59 | Cardiothoracic Progress Note ---
Cardiothoracic Subjective Interval history: Patient is awake alert and extubated. She was stable throughout the night with normal blood pressure and normal sinus rhythm and her blood gases regard both before and after extubation. Urine output has been good and creatinine is within normal limits. Chest tube drainage is minimal and her chest tubes have been removed. Overall her progress is satisfactory and I think she can be transferred to telemetry. Exam (Progress Note) - Constitutional Vitals: Period Temp Pulse Resp BP Sys/Campos Pulse Ox Last 24 Hr 96.1 F-100.1 F 67-99 8-20 94-153/44-67 94-100 Result/EKG - Labs CBC & BMP: 03/30/17 03:07 03/30/17 03:07 Labs: Laboratory Results - last 24 hr 03/28/17 03/29/17 03/29/17 16:09 09:20 09:46 WBC RBC Hgb Hct MCV MCH MCHC RDW Plt Count MPV Neut % (Auto) Lymph % (Auto) [place] % (Auto) Eos % (Auto) Baso % (Auto) Neut # (Auto) Lymph # (Auto) [place] # (Auto) Eos # (Auto) Baso # (Auto) Total Counted Immature Gran % Nucleated RBC % Immature Gran # Segmented Neutrophils Lymphocytes Monocytes Nucleated RBCs # Platelet Estimate Hypochromasia INR PT Patient/Control Mix Circ Anticoag PTT Patient Temperature 35 37 ABG pH 7.416 ABG pH at Pt Temp 7.430 7.416 ABG pCO2 35.4 ABG pCO2 at Pt Temp 35.3 35.4 ABG pO2 326.0 H ABG pO2 at Pt Temp 36.5 326.0 ABG HCO3 23.3 ABG Total CO2 21.1 L ABG O2 Saturation 100.0 ABG Base Excess -1.4 ABG Sodium 130 L 132 L VBG pH 7.401 VBG pCO2 38.9 L VBG pO2 42.0 H VBG HCO3 23.8 L VBG Total CO2 22.8 VBG O2 Saturation 78.7 VBG Base Excess -0.4 L Hemoglobin 7.6 L 8.6 L Hematocrit 23.8 L 26.7 L Potassium 4.8 3.9 Glucose 311 H 271 H Ionized Calcium 1.18 L FiO2 80.00 Sodium Chloride Carbon Dioxide Anion Gap BUN Creatinine GFR Calculation BUN/Creatinine Ratio POC Glucose Calculated Osmolality Calcium Venous Ioniz Calcium 1.00 L Magnesium Total Bilirubin Direct Bilirubin AST ALT Alkaline Phosphatase Total Creatine Kinase CK-MB (CK-2) CK and CKMB Interp Troponin I Total Protein Albumin Globulin Albumin/Globulin Ratio Blood Type A NEGATIVE Antibody Screen Negative Crossmatch See Detail Blood Bank Comment 03/29/17 03/29/17 03/29/17 09:48 10:23 10:23 WBC 10.7 D RBC 3.04 L Hgb 9.8 L Hct 27.7 L MCV 91.1 MCH 32 MCHC 35.4 RDW 12.9 Plt Count 149 149 MPV 9.5 L Neut % (Auto) 74.4 H Lymph % (Auto) 17.4 L [place] % (Auto) 6.2 Eos % (Auto) 1.1 Baso % (Auto) 0.2 Neut # (Auto) 8.0 H Lymph # (Auto) 1.9 [place] # (Auto) 0.7 Eos # (Auto) 0.1 Baso # (Auto) 0.0 Total Counted Immature Gran % 0.7 Nucleated RBC % 0.0 Immature Gran # 0.08 Segmented Neutrophils Lymphocytes Monocytes Nucleated RBCs # 0.00 Platelet Estimate Hypochromasia Slight INR 1.6 PT Patient/Control Mix 17.2 Circ Anticoag PTT 30.3 Patient Temperature ABG pH ABG pH at Pt Temp ABG pCO2 ABG pCO2 at Pt Temp ABG pO2 ABG pO2 at Pt Temp ABG HCO3 ABG Total CO2 ABG O2 Saturation ABG Base Excess ABG Sodium VBG pH VBG pCO2 VBG pO2 VBG HCO3 VBG Total CO2 VBG O2 Saturation VBG Base Excess Hemoglobin Hematocrit Potassium Glucose Ionized Calcium FiO2 Sodium Chloride Carbon Dioxide Anion Gap BUN Creatinine GFR Calculation BUN/Creatinine Ratio POC Glucose Calculated Osmolality Calcium Venous Ioniz Calcium Magnesium Total Bilirubin Direct Bilirubin AST ALT Alkaline Phosphatase Total Creatine Kinase CK-MB (CK-2) CK and CKMB Interp Troponin I Total Protein Albumin Globulin Albumin/Globulin Ratio Blood Type Antibody Screen Crossmatch Blood Bank Comment 03/29/17 03/29/17 03/29/17 10:45 10:45 10:45 WBC RBC Hgb Hct MCV MCH MCHC RDW Plt Count MPV Neut % (Auto) Lymph % (Auto) [place] % (Auto) Eos % (Auto) Baso % (Auto) Neut # (Auto) Lymph # (Auto) [place] # (Auto) Eos # (Auto) Baso # (Auto) Total Counted Immature Gran % Nucleated RBC % Immature Gran # Segmented Neutrophils Lymphocytes Monocytes Nucleated RBCs # Platelet Estimate Hypochromasia INR PT Patient/Control Mix Circ Anticoag PTT Patient Temperature ABG pH 7.398 ABG pH at Pt Temp ABG pCO2 38.9 ABG pCO2 at Pt Temp ABG pO2 134.0 H ABG pO2 at Pt Temp ABG HCO3 23.9 ABG Total CO2 21.8 L ABG O2 Saturation 99.2 ABG Base Excess -0.7 ABG Sodium VBG pH VBG pCO2 VBG pO2 VBG HCO3 VBG Total CO2 VBG O2 Saturation VBG Base Excess Hemoglobin 10.1 L Hematocrit 31.2 L Potassium 3.4 L 3.3 L Glucose 226 H 229 H Ionized Calcium FiO2 Sodium 139 Chloride 103 Carbon Dioxide 24 Anion Gap 15.4 H BUN 15 Creatinine 1.20 H GFR Calculation 48 BUN/Creatinine Ratio 12.00 POC Glucose Calculated Osmolality 284.5 Calcium 8.6 Venous Ioniz Calcium Magnesium 2.1 Total Bilirubin 1.20 H Direct Bilirubin AST 58 H ALT 46 Alkaline Phosphatase 80 Total Creatine Kinase 150 CK-MB (CK-2) 10.9 H CK and CKMB Interp 7.3 Troponin I 3.200 H Total Protein 6.1 L Albumin 3.7 Globulin 2.4 Albumin/Globulin Ratio 1.5 Blood Type Antibody Screen Crossmatch Blood Bank Comment 03/29/17 03/29/17 03/29/17 12:21 12:35 14:08 WBC RBC Hgb Hct MCV MCH MCHC RDW Plt Count MPV Neut % (Auto) Lymph % (Auto) [place] % (Auto) Eos % (Auto) Baso % (Auto) Neut # (Auto) Lymph # (Auto) [place] # (Auto) Eos # (Auto) Baso # (Auto) Total Counted Immature Gran % Nucleated RBC % Immature Gran # Segmented Neutrophils Lymphocytes Monocytes Nucleated RBCs # Platelet Estimate Hypochromasia INR PT Patient/Control Mix Circ Anticoag PTT Patient Temperature ABG pH 7.371 7.396 ABG pH at Pt Temp ABG pCO2 41.3 41.2 ABG pCO2 at Pt Temp ABG pO2 157.0 H 126.0 H ABG pO2 at Pt Temp ABG HCO3 23.4 24.8 ABG Total CO2 22.1 L 23.7 ABG O2 Saturation 99.4 98.9 ABG Base Excess -1.3 0.4 ABG Sodium VBG pH VBG pCO2 VBG pO2 VBG HCO3 VBG Total CO2 VBG O2 Saturation VBG Base Excess Hemoglobin 8.9 L 7.8 L Hematocrit 27.7 L 24.2 L Potassium 3.8 3.9 Glucose 180 H 155 H Ionized Calcium FiO2 Sodium Chloride Carbon Dioxide Anion Gap BUN Creatinine GFR Calculation BUN/Creatinine Ratio POC Glucose 194 H Calculated Osmolality Calcium Venous Ioniz Calcium Magnesium Total Bilirubin Direct Bilirubin AST ALT Alkaline Phosphatase Total Creatine Kinase CK-MB (CK-2) CK and CKMB Interp Troponin I Total Protein Albumin Globulin Albumin/Globulin Ratio Blood Type Antibody Screen Crossmatch Blood Bank Comment 03/29/17 03/29/17 03/29/17 15:21 15:23 17:01 WBC RBC Hgb 8.3 L Hct 23.9 L MCV MCH MCHC RDW Plt Count MPV Neut % (Auto) Lymph % (Auto) [place] % (Auto) Eos % (Auto) Baso % (Auto) Neut # (Auto) Lymph # (Auto) [place] # (Auto) Eos # (Auto) Baso # (Auto) Total Counted Immature Gran % Nucleated RBC % Immature Gran # Segmented Neutrophils Lymphocytes Monocytes Nucleated RBCs # Platelet Estimate Hypochromasia INR PT Patient/Control Mix Circ Anticoag PTT Patient Temperature ABG pH ABG pH at Pt Temp ABG pCO2 ABG pCO2 at Pt Temp ABG pO2 ABG pO2 at Pt Temp ABG HCO3 ABG Total CO2 ABG O2 Saturation ABG Base Excess ABG Sodium VBG pH VBG pCO2 VBG pO2 VBG HCO3 VBG Total CO2 VBG O2 Saturation VBG Base Excess Hemoglobin Hematocrit Potassium Glucose Ionized Calcium FiO2 Sodium Chloride Carbon Dioxide Anion Gap BUN Creatinine GFR Calculation BUN/Creatinine Ratio POC Glucose 145 H 177 H Calculated Osmolality Calcium Venous Ioniz Calcium Magnesium Total Bilirubin Direct Bilirubin AST ALT Alkaline Phosphatase Total Creatine Kinase CK-MB (CK-2) CK and CKMB Interp Troponin I Total Protein Albumin Globulin Albumin/Globulin Ratio Blood Type Antibody Screen Crossmatch Blood Bank Comment 03/29/17 03/29/17 03/29/17 18:04 18:05 18:05 WBC RBC Hgb 10.6 L D Hct 31.0 L MCV MCH MCHC RDW Plt Count MPV Neut % (Auto) Lymph % (Auto) [place] % (Auto) Eos % (Auto) Baso % (Auto) Neut # (Auto) Lymph # (Auto) [place] # (Auto) Eos # (Auto) Baso # (Auto) Total Counted Immature Gran % Nucleated RBC % Immature Gran # Segmented Neutrophils Lymphocytes Monocytes Nucleated RBCs # Platelet Estimate Hypochromasia INR PT Patient/Control Mix Circ Anticoag PTT Patient Temperature ABG pH ABG pH at Pt Temp ABG pCO2 ABG pCO2 at Pt Temp ABG pO2 ABG pO2 at Pt Temp ABG HCO3 ABG Total CO2 ABG O2 Saturation ABG Base Excess ABG Sodium VBG pH VBG pCO2 VBG pO2 VBG HCO3 VBG Total CO2 VBG O2 Saturation VBG Base Excess Hemoglobin Hematocrit Potassium Glucose Ionized Calcium FiO2 Sodium Chloride Carbon Dioxide Anion Gap BUN Creatinine GFR Calculation BUN/Creatinine Ratio POC Glucose 164 H Calculated Osmolality Calcium Venous Ioniz Calcium Magnesium Total Bilirubin Direct Bilirubin AST ALT Alkaline Phosphatase Total Creatine Kinase 191 D CK-MB (CK-2) 8.0 H CK and CKMB Interp 4.2 Troponin I 3.310 H Total Protein Albumin Globulin Albumin/Globulin Ratio Blood Type Antibody Screen Crossmatch Blood Bank Comment 03/29/17 03/29/17 03/29/17 18:05 19:11 20:03 WBC RBC Hgb Hct MCV MCH MCHC RDW Plt Count MPV Neut % (Auto) Lymph % (Auto) [place] % (Auto) Eos % (Auto) Baso % (Auto) Neut # (Auto) Lymph # (Auto) [place] # (Auto) Eos # (Auto) Baso # (Auto) Total Counted Immature Gran % Nucleated RBC % Immature Gran # Segmented Neutrophils Lymphocytes Monocytes Nucleated RBCs # Platelet Estimate Hypochromasia INR PT Patient/Control Mix Circ Anticoag PTT Patient Temperature ABG pH ABG pH at Pt Temp ABG pCO2 ABG pCO2 at Pt Temp ABG pO2 ABG pO2 at Pt Temp ABG HCO3 ABG Total CO2 ABG O2 Saturation ABG Base Excess ABG Sodium VBG pH VBG pCO2 VBG pO2 VBG HCO3 VBG Total CO2 VBG O2 Saturation VBG Base Excess Hemoglobin Hematocrit Potassium 4.2 Glucose 161 H Ionized Calcium FiO2 Sodium 143 Chloride 110 H Carbon Dioxide 25 Anion Gap 12.2 BUN 16 Creatinine 1.20 H GFR Calculation 48 BUN/Creatinine Ratio 13.00 POC Glucose 130 H 142 H Calculated Osmolality 288.0 Calcium 8.6 Venous Ioniz Calcium Magnesium Total Bilirubin Direct Bilirubin AST ALT Alkaline Phosphatase Total Creatine Kinase CK-MB (CK-2) CK and CKMB Interp Troponin I Total Protein Albumin Globulin Albumin/Globulin Ratio Blood Type Antibody Screen Crossmatch Blood Bank Comment 03/29/17 03/29/17 03/29/17 21:22 22:05 23:00 WBC RBC Hgb Hct MCV MCH MCHC RDW Plt Count MPV Neut % (Auto) Lymph % (Auto) [place] % (Auto) Eos % (Auto) Baso % (Auto) Neut # (Auto) Lymph # (Auto) [place] # (Auto) Eos # (Auto) Baso # (Auto) Total Counted Immature Gran % Nucleated RBC % Immature Gran # Segmented Neutrophils Lymphocytes Monocytes Nucleated RBCs # Platelet Estimate Hypochromasia INR PT Patient/Control Mix Circ Anticoag PTT Patient Temperature ABG pH 7.431 ABG pH at Pt Temp ABG pCO2 38.4 ABG pCO2 at Pt Temp ABG pO2 101.4 H ABG pO2 at Pt Temp ABG HCO3 25.0 ABG Total CO2 26.2 ABG O2 Saturation 97.5 ABG Base Excess 0.8 ABG Sodium VBG pH VBG pCO2 VBG pO2 VBG HCO3 VBG Total CO2 VBG O2 Saturation VBG Base Excess Hemoglobin 12.0 Hematocrit 35.0 L Potassium 3.8 Glucose 100 Ionized Calcium FiO2 Sodium Chloride Carbon Dioxide Anion Gap BUN Creatinine GFR Calculation BUN/Creatinine Ratio POC Glucose 102 86 Calculated Osmolality Calcium Venous Ioniz Calcium Magnesium Total Bilirubin Direct Bilirubin AST ALT Alkaline Phosphatase Total Creatine Kinase CK-MB (CK-2) CK and CKMB Interp Troponin I Total Protein Albumin Globulin Albumin/Globulin Ratio Blood Type Antibody Screen Crossmatch Blood Bank Comment 03/29/17 03/30/17 03/30/17 Unknown 00:06 01:24 WBC RBC Hgb Hct MCV MCH MCHC RDW Plt Count MPV Neut % (Auto) Lymph % (Auto) [place] % (Auto) Eos % (Auto) Baso % (Auto) Neut # (Auto) Lymph # (Auto) [place] # (Auto) Eos # (Auto) Baso # (Auto) Total Counted Immature Gran % Nucleated RBC % Immature Gran # Segmented Neutrophils Lymphocytes Monocytes Nucleated RBCs # Platelet Estimate Hypochromasia INR PT Patient/Control Mix Circ Anticoag PTT Patient Temperature ABG pH ABG pH at Pt Temp ABG pCO2 ABG pCO2 at Pt Temp ABG pO2 ABG pO2 at Pt Temp ABG HCO3 ABG Total CO2 ABG O2 Saturation ABG Base Excess ABG Sodium VBG pH VBG pCO2 VBG pO2 VBG HCO3 VBG Total CO2 VBG O2 Saturation VBG Base Excess Hemoglobin Hematocrit Potassium Glucose Ionized Calcium FiO2 Sodium Chloride Carbon Dioxide Anion Gap BUN Creatinine GFR Calculation BUN/Creatinine Ratio POC Glucose 89 71 L Calculated Osmolality Calcium Venous Ioniz Calcium Magnesium Total Bilirubin Direct Bilirubin AST ALT Alkaline Phosphatase Total Creatine Kinase CK-MB (CK-2) CK and CKMB Interp Troponin I Total Protein Albumin Globulin Albumin/Globulin Ratio Blood Type Cancelled Antibody Screen Cancelled Crossmatch See Detail Blood Bank Comment Cancelled 03/30/17 03/30/17 03/30/17 02:22 03:07 03:07 WBC 13.9 H RBC 3.75 L D Hgb 11.3 L Hct 33.1 L MCV 88.3 MCH 30 MCHC 34.1 RDW 15.5 Plt Count 151 MPV 10.3 Neut % (Auto) 90.6 H Lymph % (Auto) 5.5 L [place] % (Auto) 3.4 Eos % (Auto) 0.0 Baso % (Auto) 0.1 Neut # (Auto) 12.6 H Lymph # (Auto) 0.8 L [place] # (Auto) 0.5 Eos # (Auto) 0.0 Baso # (Auto) 0.0 Total Counted 100 Immature Gran % 0.4 Nucleated RBC % 0.0 Immature Gran # 0.06 Segmented Neutrophils 90 H Lymphocytes 7 L Monocytes 3 Nucleated RBCs # 0.00 Platelet Estimate Adequate Hypochromasia INR PT Patient/Control Mix Circ Anticoag PTT Patient Temperature ABG pH ABG pH at Pt Temp ABG pCO2 ABG pCO2 at Pt Temp ABG pO2 ABG pO2 at Pt Temp ABG HCO3 ABG Total CO2 ABG O2 Saturation ABG Base Excess ABG Sodium VBG pH VBG pCO2 VBG pO2 VBG HCO3 VBG Total CO2 VBG O2 Saturation VBG Base Excess Hemoglobin Hematocrit Potassium Glucose Ionized Calcium FiO2 Sodium Chloride Carbon Dioxide Anion Gap BUN Creatinine GFR Calculation BUN/Creatinine Ratio POC Glucose 125 H Calculated Osmolality Calcium Venous Ioniz Calcium Magnesium Total Bilirubin Direct Bilirubin AST ALT Alkaline Phosphatase Total Creatine Kinase 220 H CK-MB (CK-2) 9.5 H CK and CKMB Interp 4.3 Troponin I 2.290 H D Total Protein Albumin Globulin Albumin/Globulin Ratio Blood Type Antibody Screen Crossmatch Blood Bank Comment 03/30/17 03/30/17 03/30/17 03:07 03:07 04:27 WBC RBC Hgb Hct MCV MCH MCHC RDW Plt Count MPV Neut % (Auto) Lymph % (Auto) [place] % (Auto) Eos % (Auto) Baso % (Auto) Neut # (Auto) Lymph # (Auto) [place] # (Auto) Eos # (Auto) Baso # (Auto) Total Counted Immature Gran % Nucleated RBC % Immature Gran # Segmented Neutrophils Lymphocytes Monocytes Nucleated RBCs # Platelet Estimate Hypochromasia INR PT Patient/Control Mix Circ Anticoag PTT Patient Temperature ABG pH 7.486 H 7.381 ABG pH at Pt Temp ABG pCO2 31.5 L 40.4 ABG pCO2 at Pt Temp ABG pO2 92.7 72.1 L ABG pO2 at Pt Temp ABG HCO3 23.3 23.5 ABG Total CO2 24.2 21.5 L ABG O2 Saturation 97.3 94.5 L ABG Base Excess 0.5 -1.0 ABG Sodium VBG pH VBG pCO2 VBG pO2 VBG HCO3 VBG Total CO2 VBG O2 Saturation VBG Base Excess Hemoglobin 11.9 L 11.5 L Hematocrit 35.0 L 35.5 L Potassium 4.3 4.2 4.0 Glucose 142 H 136 H 140 H Ionized Calcium FiO2 Sodium 143 Chloride 108 H Carbon Dioxide 24 Anion Gap 15.3 H BUN 18 Creatinine 1.20 H GFR Calculation 48 BUN/Creatinine Ratio 15.00 POC Glucose Calculated Osmolality 288.0 Calcium 8.7 Venous Ioniz Calcium Magnesium 1.5 L Total Bilirubin 1.10 H Direct Bilirubin 0.30 H AST 48 H ALT 39 Alkaline Phosphatase 63 Total Creatine Kinase CK-MB (CK-2) CK and CKMB Interp Troponin I Total Protein 6.0 L Albumin 3.5 Globulin 2.5 Albumin/Globulin Ratio 1.4 Blood Type Antibody Screen Crossmatch Blood Bank Comment 03/30/17 03/30/17 03/30/17 05:07 06:04 06:56 WBC RBC Hgb Hct MCV MCH MCHC RDW Plt Count MPV Neut % (Auto) Lymph % (Auto) [place] % (Auto) Eos % (Auto) Baso % (Auto) Neut # (Auto) Lymph # (Auto) [place] # (Auto) Eos # (Auto) Baso # (Auto) Total Counted Immature Gran % Nucleated RBC % Immature Gran # Segmented Neutrophils Lymphocytes Monocytes Nucleated RBCs # Platelet Estimate Hypochromasia INR PT Patient/Control Mix Circ Anticoag PTT Patient Temperature ABG pH ABG pH at Pt Temp ABG pCO2 ABG pCO2 at Pt Temp ABG pO2 ABG pO2 at Pt Temp ABG HCO3 ABG Total CO2 ABG O2 Saturation ABG Base Excess ABG Sodium VBG pH VBG pCO2 VBG pO2 VBG HCO3 VBG Total CO2 VBG O2 Saturation VBG Base Excess Hemoglobin Hematocrit Potassium Glucose Ionized Calcium FiO2 Sodium Chloride Carbon Dioxide Anion Gap BUN Creatinine GFR Calculation BUN/Creatinine Ratio POC Glucose 135 H 135 H 119 H Calculated Osmolality Calcium Venous Ioniz Calcium Magnesium Total Bilirubin Direct Bilirubin AST ALT Alkaline Phosphatase Total Creatine Kinase CK-MB (CK-2) CK and CKMB Interp Troponin I Total Protein Albumin Globulin Albumin/Globulin Ratio Blood Type Antibody Screen Crossmatch Blood Bank Comment Quality Measures - VTE Contraindication to Pharmacological VTE Prophylaxis: High Risk of Bleeding Specialty Discharge - Follow Up or Referrals
[2017-03-30] MEDS: FERROUS SULFATE 325 MG TABLET PO SCH (09:42)
[2017-03-30] MEDS: PANTOPRAZOLE 40 MG TABLET PO SCH (09:42)
[2017-03-30] MEDS: DOCUSATE SODIUM 100 MG CAPSULE PO SCH (09:42)
[2017-03-30] MEDS: CHLORHEXIDINE 0.12% ORAL RINSE 60 ML BOTTLE SWISH/SPIT SCH ×3 (09:44→21:32)
[2017-03-30] MEDS ORDERED: PROMETHAZINE 25 MG TABLET PO PRN (10:55)
[2017-03-30] MEDS ORDERED: FLUTICASONE 50 MCG NASAL SPRAY 16 GM BOTTLE BOTH NARES PRN (10:55)
--- NOTE | 2017-03-30 11:38 | XRay Report ---
Portable chest Date: 03/30/2017 Clinical history: Postchest tube removal, evaluate for pneumothorax Comparison: 03/29/2017 Technique: Portable AP sitting chest Findings: Stable cardiomegaly with recent median sternotomy. No definite pneumothorax is identified following removal of the mediastinal chest tubes, nasogastric tube, and endotracheal tube. Stable right IJ CVP line. Progressive pleural and parenchymal findings at the left lung base. Stable osseous structures. Impression: Status post median sternotomy with no definite pneumothorax. Progressive pleural and parenchymal findings at the left lung base. PROCEDURE INTERPRETED AT [facility] DEPARTMENT OF RADIOLOGY Final Report Signed by: Dr. Roshni Kong
[2017-03-30] MEDS: GLIMEPIRIDE 4 MG TABLET PO SCH ×2 (13:14→21:31)
[2017-03-30] MEDS: CHOLECALCIFEROL 1,000 UNIT TABLET PO SCH (13:14)
[2017-03-30] MEDS: OMEGA 3 ACID ETHYL ESTERS 1 GM CAPSULE PO SCH ×2 (13:14→21:31)
[2017-03-30] MEDS: ASPIRIN EC 81 MG TABLET PO SCH (13:14)
[2017-03-30] MEDS: EZETIMIBE 10 MG TABLET PO SCH (13:14)
[2017-03-30] MEDS: CARVEDILOL 3.125 MG TABLET PO SCH ×2 (13:14→21:31)
[2017-03-30] MEDS: INSULIN LISPRO 100 UNIT/ML SUBCUT SCH ×4 (13:15→21:32)
[2017-03-30] MEDS: INSULIN GLARGINE 100 UNIT/ML SUBCUT SCH (13:15)
--- NOTE | 2017-03-30 17:22 | Hospitalist Progress Note ---
Assessment and Plan (1) DM2 (diabetes mellitus, type 2) Status: Chronic Assessment and plan: Continue sliding scale insulin and Accu-Cheks. 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 No acute events overnight. Case discussed with nursing staff. Labs reviewed. Patient transferred to telemetry today. She continues to do well. Denies any complaints. Exam - Constitutional Vitals: Period Temp Pulse Resp BP Sys/Campos Pulse Ox Last 24 Hr 97 F-100.1 F 67-91 8-20 94-153/44-65 94-100 Exam: Constitutional System: No distress. No tremulousness. Head: Normocephalic, atraumatic. Ears, Nose and Throat System: No pain or tenderness. No epistaxis or discharge Eyes System: Pupils equal, round, and reactive. Extraocular muscles intact. Neck: Supple, without adenopathy, No jugular venous distention. Respiratory System: Chest clear to auscultation. Cardiovascular System: Heart with regular rate and rhythm. No murmur. GI System: Abdomen soft, nontender. Normo active bowel sounds present. Musculoskeletal System: limbs with no pedal edema. Full distal pulses. Neurological System: Alert awake and oriented 3. No neurological deficits noted. Psychiatric System: Pleasant and cooperative. Family at the bedside. Results - Labs CBC & BMP: 03/30/17 03:07 03/30/17 03:07 Lab Results: I have reviewed the past 24 hour labs Quality Measures - VTE Contraindication to Pharmacological VTE Prophylaxis: High Risk of Bleeding Specialty Discharge - Follow Up or Referrals
--- NOTE | 2017-03-30 18:13 | Anesthesia Post-Op ---
Anesthesia Post OP - Post Ansesthetic Evaluation Patient seen in post op: Yes Resp: within normal limits CV: within normal limits Mental: within normal limits Temp: within normal limits Wvip-Du-Vcjryebua: within normal limits Nausea and Vomiting: within normal limits Pain: within normal limits
[2017-03-30] MEDS: AMITRIPTYLINE 10 MG TABLET PO SCH (21:31)
[2017-03-31] MEDS: INSULIN LISPRO 100 UNIT/ML SUBCUT SCH ×6 (02:04→21:46)
[2017-03-31] MEDS: KETOROLAC 30 MG/1 ML VIAL IV SCH ×4 (02:04→21:45)
[2017-03-31 05:45] LABS: Basophils % 0.3 % (0.0-0.8); Eosinophils # 0.1 10*3/uL (0.0-0.87); Eosinophils % 0.4 % (0.00-10.9); Hemoglobin 10.5 GM/DL (12.0-16.0); Immature Granulocytes % 0.8 %; Immature Granulocytes Absolute 0.11 #; Lymphocytes # 1.6 10*3/uL (1.4-4.0); Lymphocytes % 11.5 % (21.3-54.2); Mean Corpuscular HGB Conc 33.9 GM/DL (32-36); Mean Corpuscular Hemoglobin 30 PG (27-34); Mean Corpuscular Volume 89.6 FL (87-102); Mean Platelet Volume 10.4 FL (9.6-12.0); Monocytes # 1.6 10*3/uL (0.11-0.8); Monocytes % 11.3 % (1.7-12.7); Neutrophils # 10.8 10*3/uL (1.4-7.4); Neutrophils % 75.7 % (38.7-73.9); Platelet Count 140 T/CUMM (130-400); Red Blood Count 3.46 MC/CUMM (3.8-5.5); Red Cell Distribution Width 15.9 % (9.3-17.3); White Blood Count 14.2 T/CUMM (4-12)
[2017-03-31] MEDS ORDERED: FUROSEMIDE 40 MG/4 ML VIAL IV ONE (06:00)
[2017-03-31 06:22] LABS: Hypochromasia 2+; Microcytosis Slight; Target Cells Slight
[2017-03-31 06:30] LABS: Alanine Aminotransferase 29 U/L (13-56); Albumin 3.1 G/DL (3.4-5.0); Alkaline Phosphatase 58 U/L (45-117); Aspartate Amino Transferase 27 U/L (0-37); Bilirubin,Indirect 0.4 MG/DL (0.0-1.0); Blood Urea Nitrogen 39 MG/DL (7-18); Calcium 8.3 MG/DL (8.5-10.1); Glucose 127 MG/DL (74-106); Magnesium 2.2 MG/DL (1.8-2.4); Osmolality,Calculated 291.3 MOS/KG (273-304); Sodium 141 MMOL/L (136-145); Total Protein 5.4 G/DL (6.4-8.3)
[2017-03-31 06:33] LABS: Troponin I Only 0.498 NG/ML (0.00-0.045)
--- NOTE | 2017-03-31 07:34 | XRay Report ---
XR chest 1V portable Indication: SOB Comparison: Chest x-ray dated March 30, 2017 Technique: Single frontal view of the chest Findings: Continued cardiomegaly status post sternotomy. Right-sided central venous catheter appears grossly unchanged. Interval increased diffuse hazy opacification throughout the left lung suggesting increase in left-sided pleural fluid which is at least moderate in volume. Underlying atelectasis/consolidation suspected specifically within the left lung base. Osseous and surrounding soft tissue structures appear grossly unchanged. IMPRESSION: As above. PROCEDURE INTERPRETED AT [facility] DEPARTMENT OF RADIOLOGY Final Report Signed by: Dr Cole Pierre
--- NOTE | 2017-03-31 08:39 | Cardiothoracic Progress Note ---
Cardiothoracic Subjective Interval history: Patient appears to be stable. She is awake alert and responsive. Vital signs are stable and she is breathing comfortably. Laboratory work is essentially okay. Chest x-ray is relatively clear but does show small to moderate pleural effusion on the left. We will monitor this closely. Overall her progress seems satisfactory and will gradually increase her activity as tolerated. Exam (Progress Note) - Constitutional Vitals: Period Temp Pulse Resp BP Sys/Campos Pulse Ox Last 24 Hr 97 F-98.2 F 64-83 18-20 95-138/51-60 93-98 Result/EKG - Labs CBC & BMP: 03/31/17 05:39 03/31/17 05:39 Labs: Laboratory Results - last 24 hr 03/29/17 03/30/17 03/30/17 Unknown 11:43 16:11 WBC RBC Hgb Hct MCV MCH MCHC RDW Plt Count MPV Neut % (Auto) Lymph % (Auto) [place] % (Auto) Eos % (Auto) Baso % (Auto) Neut # (Auto) Lymph # (Auto) [place] # (Auto) Eos # (Auto) Baso # (Auto) Immature Gran % Nucleated RBC % Immature Gran # Nucleated RBCs # Hypochromasia Microcytosis Target Cells Sodium Potassium Chloride Carbon Dioxide Anion Gap BUN Creatinine GFR Calculation BUN/Creatinine Ratio Glucose POC Glucose 336 H 237 H Calculated Osmolality Calcium Magnesium Total Bilirubin Direct Bilirubin Indirect Bilirubin AST ALT Alkaline Phosphatase Total Creatine Kinase CK-MB (CK-2) Troponin I Total Protein Albumin Globulin Albumin/Globulin Ratio Blood Type Cancelled Antibody Screen Cancelled Crossmatch See Detail Blood Bank Comment Cancelled 03/30/17 03/31/17 03/31/17 20:55 01:14 05:39 WBC 14.2 H RBC 3.46 L Hgb 10.5 L Hct 31.0 L MCV 89.6 MCH 30 MCHC 33.9 RDW 15.9 Plt Count 140 MPV 10.4 Neut % (Auto) 75.7 H Lymph % (Auto) 11.5 L [place] % (Auto) 11.3 Eos % (Auto) 0.4 Baso % (Auto) 0.3 Neut # (Auto) 10.8 H Lymph # (Auto) 1.6 [place] # (Auto) 1.6 H Eos # (Auto) 0.1 Baso # (Auto) 0.0 Immature Gran % 0.8 Nucleated RBC % 0.0 Immature Gran # 0.11 Nucleated RBCs # 0.00 Hypochromasia 2+ Microcytosis Slight Target Cells Slight Sodium Potassium Chloride Carbon Dioxide Anion Gap BUN Creatinine GFR Calculation BUN/Creatinine Ratio Glucose POC Glucose 252 H 220 H Calculated Osmolality Calcium Magnesium Total Bilirubin Direct Bilirubin Indirect Bilirubin AST ALT Alkaline Phosphatase Total Creatine Kinase CK-MB (CK-2) Troponin I Total Protein Albumin Globulin Albumin/Globulin Ratio Blood Type Antibody Screen Crossmatch Blood Bank Comment 03/31/17 03/31/17 03/31/17 05:39 05:41 07:13 WBC RBC Hgb Hct MCV MCH MCHC RDW Plt Count MPV Neut % (Auto) Lymph % (Auto) [place] % (Auto) Eos % (Auto) Baso % (Auto) Neut # (Auto) Lymph # (Auto) [place] # (Auto) Eos # (Auto) Baso # (Auto) Immature Gran % Nucleated RBC % Immature Gran # Nucleated RBCs # Hypochromasia Microcytosis Target Cells Sodium 141 Potassium 5.0 Chloride 106 Carbon Dioxide 28 Anion Gap 12.0 BUN 39 H Creatinine 1.30 H GFR Calculation 43 BUN/Creatinine Ratio 30.00 H Glucose 127 H POC Glucose 142 H 92 Calculated Osmolality 291.3 Calcium 8.3 L Magnesium 2.2 Total Bilirubin 0.60 Direct Bilirubin 0.20 Indirect Bilirubin 0.4 AST 27 ALT 29 Alkaline Phosphatase 58 Total Creatine Kinase 138 D CK-MB (CK-2) 2.6 D Troponin I 0.498 H D Total Protein 5.4 L Albumin 3.1 L Globulin 2.3 Albumin/Globulin Ratio 1.3 Blood Type Antibody Screen Crossmatch Blood Bank Comment Quality Measures - VTE Contraindication to Pharmacological VTE Prophylaxis: High Risk of Bleeding Specialty Discharge - Follow Up or Referrals
[2017-03-31] MEDS: SODIUM CHLOR 0.45% KCL 20 MEQ 20 MEQ/1,000 ML BAG IV SCH (08:45)
[2017-03-31] MEDS: PANTOPRAZOLE 40 MG TABLET PO SCH (09:25)
[2017-03-31] MEDS: EZETIMIBE 10 MG TABLET PO SCH (09:25)
[2017-03-31] MEDS: CARVEDILOL 3.125 MG TABLET PO SCH ×2 (09:25→21:45)
[2017-03-31] MEDS: GLIMEPIRIDE 4 MG TABLET PO SCH ×2 (09:25→21:45)
[2017-03-31] MEDS: CHOLECALCIFEROL 1,000 UNIT TABLET PO SCH (09:25)
[2017-03-31] MEDS: OMEGA 3 ACID ETHYL ESTERS 1 GM CAPSULE PO SCH ×2 (09:25→21:45)
[2017-03-31] MEDS: ASPIRIN EC 81 MG TABLET PO SCH (09:25)
[2017-03-31] MEDS: DOCUSATE SODIUM 100 MG CAPSULE PO SCH (09:25)
[2017-03-31] MEDS: INSULIN GLARGINE 100 UNIT/ML SUBCUT SCH (09:34)
[2017-03-31] MEDS: CHLORHEXIDINE 0.12% ORAL RINSE 60 ML BOTTLE SWISH/SPIT SCH ×2 (09:34→21:46)
[2017-03-31] MEDS: FERROUS SULFATE 325 MG TABLET PO SCH (09:34)
--- NOTE | 2017-03-31 17:21 | Hospitalist Progress Note ---
Assessment and Plan (1) DM2 (diabetes mellitus, type 2) Status: Chronic Assessment and plan: Continue sliding scale insulin and Accu-Cheks. Routine postop care per cardiovascular surgery Current Visit: Yes Qualifiers: Diabetes mellitus complication status: with circulatory complication Diabetes mellitus complication detail: with other circulatory complications Diabetes mellitus terminal worker insulin use: with usp use Qualified Code(s) : E11.59 - Type 2 diabetes mellitus with other circulatory complications; Z79.4 - FDC (current) use of insulin (2) CAD (coronary artery disease) Status: Acute Current Visit: Yes Qualifiers: Coronary Disease-Associated Artery/Lesion type: bypass graft [place] vs. transplanted heart: [place] heart Hospitalist: Subjective Interval history: Patient seen and examined. No acute events overnight. Case discussed with nursing staff. Labs reviewed. Blood sugars reviewed and acceptable. Exam - Constitutional Vitals: Period Temp Pulse Resp BP Sys/Campos Pulse Ox Last 24 Hr 97.2 F-98.0 F 64-87 18-20 95-113/51-63 88-96 Exam: Constitutional System: No distress. No tremulousness. Head: Normocephalic, atraumatic. Ears, Nose and Throat System: No pain or tenderness. No epistaxis or discharge Eyes System: Pupils equal, round, and reactive. Extraocular muscles intact. Neck: Supple, without adenopathy, No jugular venous distention. Respiratory System: Chest clear to auscultation. Cardiovascular System: Heart with regular rate and rhythm. No murmur. GI System: Abdomen soft, nontender. Normo active bowel sounds present. Musculoskeletal System: limbs with no pedal edema. Full distal pulses. Neurological System: Alert awake and oriented 3. No neurological deficits noted. Psychiatric System: Pleasant and cooperative. Family at the bedside. Results - Labs CBC & BMP: 03/31/17 05:39 03/31/17 05:39 Lab Results: I have reviewed the past 24 hour labs Quality Measures - VTE Contraindication to Pharmacological VTE Prophylaxis: High Risk of Bleeding Specialty Discharge - Follow Up or Referrals
--- NOTE | 2017-03-31 20:43 | Cardiology Consult Note ---
Lori Valles April RN, am scribing for, and in the presence of, Edin Meléndez MD 20:40. Assessment and Plan - Time spent with patient Time spent with patient: Greater than 30 minutes (Due to assessment, planning, documentation, medication review) (1) Status post coronary artery bypass graft Status: Acute Assessment and plan: She is doing well postoperatively. Current Visit: Yes (2) Hypertension Status: Chronic Assessment and plan: Blood pressures are stable. Current Visit: Yes (3) CAD (coronary artery disease) Status: Acute Assessment and plan: Now post coronary bypass surgery. Current Visit: Yes Qualifiers: Coronary Disease-Associated Artery/Lesion type: bypass graft [place] vs. transplanted heart: [place] heart (4) DM2 (diabetes mellitus, type 2) Status: Chronic Assessment and plan: This is being monitored on protocol. 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 We will monitor. Current Visit: Yes History of Present Illness - Data of Consult Patient: new to practice Consult date: 03/31/17 Requesting Physician: Raúl Lakhani - Consult Narrative Reason for consult: Request to change friend of the court History of present illness: Braille Operator: New to Dr. Meléndez Ms. George is a 71 year old female who has previously been followed by Dr. Lackey at [facility]. She is requesting to change to a friend of the court who practices at [facility]. She has a history of [place], hypertension, dyslipidemia, and NIDDM. Surgical history includes hysterectomy, cholecystectomy, left knee, sinus, colectomy, appendectomy, and tonsillectomy. Family history is positive for CAD in mother and brother, diabetes in mother and siblings, hypertension in mother, and stroke in father. She reports she is a lifetime non-smoker. She lives at home with her . According to the patient she had an [place] in September 2016. According to our records she underwent cardiac catheterization by Dr. Lackey and was found to have two-vessel coronary disease involving the left main and the right posterior descending coronary artery. The patient was considered for bypass surgery, but medical therapy was elected at that time. She had chest pain last week and presented to the emergency department on Wednesday. Dr. Montero was contacted and he recommended surgical bypass. On Wednesday, March 29, she underwent coronary bypass grafting 2 with a left internal mammary graft to the anterior descending coronary artery and saphenous vein graft to the posterior descending coronary artery here at [facility] by Dr. Lakhani. Postop day 1 she was extubated and chest tubes were removed. She did require several units of blood products after surgery. According to Dr. Lakhani's notes she has been stable since surgery. Ms. George is seen today on the telemetry unit. She is sitting up in chair in no acute distress. Oxygen use via nasal cannula. She reports some slight tenderness to her sternal incision and to her right lower extremity graft site. Both incisions are noted to be without evidence of dehiscence or infection. She denies any chest pain, shortness of breath, palpitations, or dizziness. Vital signs have been stable with most recent blood pressure 101/63. Telemetry monitoring currently shows sinus rhythm with heart rates in the 60s. Labs are unremarkable. Chest x-ray today shows moderate left-sided pleural fluid. Patient personally interviewed and examined and chart reviewed. I discussed the case in the presence of Dara Palomares RN. I agree with the above. This patient has not had prior cardiac disease and is doing well postoperatively from CABG that was carried out 2 days ago. Have reviewed her history. She has been on atorvastatin and then the. These need to be restarted in the next couple days. We will continue to follow the patient on the hospital and make arrangements for outpatient follow-up. CC: Raúl Lakhani MD - Home Medications and Allergies Home Medications: Home Medications Medication Instructions Recorded Confirmed Type Amitriptyline [Elavil] 10 mg PO BEDTIME 03/26/17 03/26/17 History Aspirin [Aspirin EC] 81 mg PO DAILY 03/26/17 03/27/17 History Atorvastatin [Lipitor] 40 mg PO BEDTIME 03/26/17 03/26/17 History Carvedilol [Coreg] 3.125 mg PO BID 03/26/17 03/26/17 History Cholecalciferol (Vitamin D3) 1,000 unit PO DAILY 03/26/17 03/27/17 History [Vitamin D3] Clopidogrel [Plavix] 75 mg PO DAILY 03/26/17 03/26/17 History Ezetimibe 10 mg PO DAILY 03/26/17 03/27/17 History Fluticasone 50 Mcg Nasal Ferdinand 2 sprays ONE NARE DAILY PRN 03/26/17 03/27/17 History [Flonase Nasal Ferdinand] Glimepiride 4 mg PO BID 03/26/17 03/27/17 History Insulin Detemir [Levemir] 20 units SUBCUT DAILY 03/26/17 03/27/17 History Isosorbide Mononitrate [Imdur] 30 mg PO DAILY 03/26/17 03/27/17 History Linaclotide [Linzess] 1 - 2 capsule PO DAILY 03/26/17 03/27/17 History Losartan [Cozaar] 50 mg PO BID 03/26/17 03/26/17 History Meloxicam 7.5 mg PO QOTHER DAY 03/26/17 03/27/17 History Nitroglycerin [Nitroglycerin SL 0.4 mg SL DIRECTED PRN 03/26/17 03/27/17 History Tab] Preston 3 Acid Ethyl Esters [Lovaza] 1 gm PO BID 03/26/17 03/26/17 History Promethazine Tab [Phenergan Tab] 25 mg PO Q4HR PRN 03/26/17 03/27/17 History cefUROXime axetil [Cefuroxime] 250 mg PO BID 03/26/17 03/27/17 History Allergies/Adverse Reactions: Allergies Allergy/AdvReac Type Severity Reaction Status Date / Time Amoxicillin [From Augmentin] Allergy HIVES Verified 03/26/17 18:50 ciprofloxacin [From Cipro] Allergy HIVES Verified 03/26/17 18:50 clavulanic acid Allergy HIVES Verified 03/26/17 18:50 [From Augmentin] NSAIDS (Non-Steroidal Allergy Abdominal Verified 03/26/17 18:50 Anti-Inflamma Pain dicyclomine AdvReac ANAPHYLAXIS Verified 03/26/17 18:50 Sulfa (Sulfonamide AdvReac HIVES Verified 03/26/17 18:39 Antibiotics) - Constitutional Constitutional: Present: as per HPI - EENT Eyes: Present: loss of vision (Cataracts), requires corrective lense. Absent: blurry vision Ears: Absent: decreased hearing, tinnitus Nose, mouth and throat: Absent: dysphagia, epistaxis, headache(s), neck pain, sore throat - Cardiovascular Cardiovascular: Absent: chest pain at rest (Chest pain prior to surgery), chest pain with activity, dyspnea, dyspnea on exertion, edema, radiating jaw, neck or arm pain, lightheadedness, orthopnea, palpitations - Respiratory Respiratory: Absent: cough, dyspnea, hemoptysis, dyspnea on exertion, wheezing - Gastrointestinal Gastrointestinal: Present: constipation. Absent: abdominal pain, diarrhea, hematemesis, hematochezia, melena, nausea, vomiting - Genitourinary Genitourinary: Absent: dysuria, hematuria - Musculoskeletal Musculoskeletal: Absent: back pain, limited range of motion, muscle weakness - Neurological Neurological: Absent: abnormal gait, abnormal speech, dizziness, frequent falls , headache(s), syncope - Psychiatric Psychiatric: Absent: anxiety, confusion, depression - Endocrine Endocrine: Absent: fatigue - Hematologic/Lymphatic Hematologic/Lymphatic: Present: easy bruising. Absent: easy bleeding Medical,Surgical,& Family Hx - Medical History Cardio: History of: CAD, Hypertension, [place] Endocrine: History of: Diabetes Mellitus (IDDM) Gastrointestinal: History of: Diverticulitis/ Diverticulosis Musculoskeletal: History of: Osteoporosis - Surgical History Cardiac Surgeries: Sugical HX of: Cardiac Catheterization (At [facility]) HEENT Surgeries: Surgical HX of: Tonsilectomy & Adenoidectomy Abdominal Surgeries: Surgical HX of: Abdominal Surgery (colon surgery), Appendectomy, Cholecystectomy Reproductive Surgeries: Surgical HX of;: Hysterectomy Orthopedic Surgeries: Surgical HX of;: Total Knee Replacement (Left) - Family History Family History: Reports;: Family Diabetes (Mother, siblings), Family Heart Disease (Mother, brother), Family Hypertension (Mother), Family Stroke (Father) - Social History Smoking Status: Never smoker Have you smoked in the last 12 months: No Frequency of Alcohol Use: None Type of Drug Use: None Marital Status: Lives With:: Spouse Functional capacity: independent ambulation Physical Examination Vital Signs Temp Pulse Resp BP Pulse Ox 97.2 F L 64 16 136/68 96 03/26/17 18:22 03/26/17 18:22 03/26/17 18:22 03/26/17 18:22 05/05/17 18:22 General: Present: Appears Well, No Apparent Distress HEENT: Present: PERRL, Mucus Membranes Moist Neck: Present: Supple Neck, Midline Trachea, No Bruit, Other (Right IJ) Cardiac: Present: Regular Rhythm, No Murmur Lungs: Present: Normal Breath Sounds, Oxygen (Via nasal cannula), No Wheeze, Rales, Rhonchi Neuro: Absent: Resting Tremor, Essential Tremor Abdomen: Present: Soft, Active Bowel Sounds, Non-Tender. Absent: Distended Skin: Absent: Rash, Ulceration Incision: Present: Incision Site (Sternal wound and right lower extremity graft look good) Gait: Present: Normal Gait Extremities: Present: Normal Gait, No Edema, Normal Upper Extr. Pulses, Normal Lower Extr. Pulses Result/EKG - Labs CBC & BMP: 03/31/17 05:39 03/31/17 05:39 Lab Results: I have reviewed the past 24 hour labs Labs: Laboratory Results - last 24 hr 03/29/17 03/30/17 03/30/17 Unknown 16:11 20:55 WBC RBC Hgb Hct MCV MCH MCHC RDW Plt Count MPV Neut % (Auto) Lymph % (Auto) [place] % (Auto) Eos % (Auto) Baso % (Auto) Neut # (Auto) Lymph # (Auto) [place] # (Auto) Eos # (Auto) Baso # (Auto) Immature Gran % Nucleated RBC % Immature Gran # Nucleated RBCs # Hypochromasia Microcytosis Target Cells Sodium Potassium Chloride Carbon Dioxide Anion Gap BUN Creatinine GFR Calculation BUN/Creatinine Ratio Glucose POC Glucose 237 H 252 H Calculated Osmolality Calcium Magnesium Total Bilirubin Direct Bilirubin Indirect Bilirubin AST ALT Alkaline Phosphatase Total Creatine Kinase CK-MB (CK-2) Troponin I Total Protein Albumin Globulin Albumin/Globulin Ratio Blood Type Cancelled Antibody Screen Cancelled Crossmatch See Detail Blood Bank Comment Cancelled 03/31/17 03/31/17 03/31/17 01:14 05:39 05:39 WBC 14.2 H RBC 3.46 L Hgb 10.5 L Hct 31.0 L MCV 89.6 MCH 30 MCHC 33.9 RDW 15.9 Plt Count 140 MPV 10.4 Neut % (Auto) 75.7 H Lymph % (Auto) 11.5 L [place] % (Auto) 11.3 Eos % (Auto) 0.4 Baso % (Auto) 0.3 Neut # (Auto) 10.8 H Lymph # (Auto) 1.6 [place] # (Auto) 1.6 H Eos # (Auto) 0.1 Baso # (Auto) 0.0 Immature Gran % 0.8 Nucleated RBC % 0.0 Immature Gran # 0.11 Nucleated RBCs # 0.00 Hypochromasia 2+ Microcytosis Slight Target Cells Slight Sodium 141 Potassium 5.0 Chloride 106 Carbon Dioxide 28 Anion Gap 12.0 BUN 39 H Creatinine 1.30 H GFR Calculation 43 BUN/Creatinine Ratio 30.00 H Glucose 127 H POC Glucose 220 H Calculated Osmolality 291.3 Calcium 8.3 L Magnesium 2.2 Total Bilirubin 0.60 Direct Bilirubin 0.20 Indirect Bilirubin 0.4 AST 27 ALT 29 Alkaline Phosphatase 58 Total Creatine Kinase 138 D CK-MB (CK-2) 2.6 D Troponin I 0.498 H D Total Protein 5.4 L Albumin 3.1 L Globulin 2.3 Albumin/Globulin Ratio 1.3 Blood Type Antibody Screen Crossmatch Blood Bank Comment 03/31/17 03/31/17 03/31/17 05:41 07:13 11:44 WBC RBC Hgb Hct MCV MCH MCHC RDW Plt Count MPV Neut % (Auto) Lymph % (Auto) [place] % (Auto) Eos % (Auto) Baso % (Auto) Neut # (Auto) Lymph # (Auto) [place] # (Auto) Eos # (Auto) Baso # (Auto) Immature Gran % Nucleated RBC % Immature Gran # Nucleated RBCs # Hypochromasia Microcytosis Target Cells Sodium Potassium Chloride Carbon Dioxide Anion Gap BUN Creatinine GFR Calculation BUN/Creatinine Ratio Glucose POC Glucose 142 H 92 79 Calculated Osmolality Calcium Magnesium Total Bilirubin Direct Bilirubin Indirect Bilirubin AST ALT Alkaline Phosphatase Total Creatine Kinase CK-MB (CK-2) Troponin I Total Protein Albumin Globulin Albumin/Globulin Ratio Blood Type Antibody Screen Crossmatch Blood Bank Comment - Impressions Impressions: Telemetry continued to reveal sinus rhythm. - Diagnostic Findings Procedure: Chest x-ray: report reviewed by me - EKG EKG results: interpreted by me EKG shows: sinus rhythm Quality Measures - VTE Contraindication to Pharmacological VTE Prophylaxis: High Risk of Bleeding Specialty Discharge - Follow Up or Referrals Medhat Valles John Timothy, MD, personally performed the services described in this documentation, ascribed by Dara Sandoval RN in my presence, and it is both accurate and complete 043 .
[2017-03-31] MEDS: AMITRIPTYLINE 10 MG TABLET PO SCH (21:45)
[2017-04-01] MEDS: KETOROLAC 30 MG/1 ML VIAL IV SCH ×4 (02:12→20:46)
[2017-04-01 06:18] LABS: Basophils % 0.2 % (0.0-0.8); Eosinophils # 0.4 10*3/uL (0.0-0.87); Eosinophils % 3.4 % (0.00-10.9); Hematocrit 33.2 VOL% (35.7-47.0); Hemoglobin 10.9 GM/DL (12.0-16.0); Immature Granulocytes % 0.7 %; Immature Granulocytes Absolute 0.07 #; Lymphocytes # 2.1 10*3/uL (1.4-4.0); Mean Corpuscular HGB Conc 32.8 GM/DL (32-36); Mean Corpuscular Hemoglobin 30 PG (27-34); Mean Corpuscular Volume 91.2 FL (87-102); Monocytes # 1.1 10*3/uL (0.11-0.8); Monocytes % 10.3 % (1.7-12.7); Neutrophils # 6.6 10*3/uL (1.4-7.4); Neutrophils % 64.4 % (38.7-73.9); Platelet Count 149 T/CUMM (130-400); Red Blood Count 3.64 MC/CUMM (3.8-5.5); Red Cell Distribution Width 15.4 % (9.3-17.3); White Blood Count 10.2 T/CUMM (4-12)
[2017-04-01 06:49] LABS: Alanine Aminotransferase 31 U/L (13-56); Albumin 3.2 G/DL (3.4-5.0); Alkaline Phosphatase 60 U/L (45-117); Aspartate Amino Transferase 28 U/L (0-37); Bilirubin,Indirect 0.9 MG/DL (0.0-1.0); Blood Urea Nitrogen 41 MG/DL (7-18); Calcium 8.6 MG/DL (8.5-10.1); Glucose 84 MG/DL (74-106); Magnesium 2.1 MG/DL (1.8-2.4); Potassium 4.2 MMOL/L (3.5-5.1); Sodium 143 MMOL/L (136-145); Total Protein 5.7 G/DL (6.4-8.3)
[2017-04-01 06:50] LABS: Troponin I Only 0.335 NG/ML (0.00-0.045)
[2017-04-01 06:55] LABS: Free T4 (Free Thyroxine) 1.14 NG/DL (0.76-1.46); Risk Ratio 2.12; Thyroid Stimulating Hormone 1.85 uIU/ml (0.358-3.74); VLDL CHOLESTEROL 19.6 MG/DL
[2017-04-01] MEDS: INSULIN LISPRO 100 UNIT/ML SUBCUT SCH ×4 (07:56→22:13)
--- NOTE | 2017-04-01 08:22 | Cardiothoracic Progress Note ---
Cardiothoracic Subjective Interval history: Patient does not feel quite as well today. This is primarily due to chest soreness. Other than that she has no specific complaints and is afebrile. Her wounds look okay and her vital signs are stable and she is breathing comfortably. We will try to treat her symptoms with analgesia and slowly encourage her activity according to routine postoperative protocol. Exam (Progress Note) - Constitutional Vitals: Period Temp Pulse Resp BP Sys/Campos Pulse Ox Last 24 Hr 96.1 F-98.4 F 62-87 18-20 95-124/53-63 88-98 Result/EKG - Labs CBC & BMP: 04/01/17 03:38 04/01/17 03:38 Labs: Laboratory Results - last 24 hr 03/31/17 03/31/17 03/31/17 07:13 11:44 15:23 WBC RBC Hgb Hct MCV MCH MCHC RDW Plt Count MPV Neut % (Auto) Lymph % (Auto) [place] % (Auto) Eos % (Auto) Baso % (Auto) Neut # (Auto) Lymph # (Auto) [place] # (Auto) Eos # (Auto) Baso # (Auto) Immature Gran % Nucleated RBC % Immature Gran # Nucleated RBCs # Sodium Potassium Chloride Carbon Dioxide Anion Gap BUN Creatinine GFR Calculation BUN/Creatinine Ratio Glucose POC Glucose 92 79 138 H Calculated Osmolality Calcium Magnesium Total Bilirubin Direct Bilirubin Indirect Bilirubin AST ALT Alkaline Phosphatase Total Creatine Kinase CK-MB (CK-2) Troponin I Total Protein Albumin Globulin Albumin/Globulin Ratio Triglycerides Cholesterol LDL Cholesterol VLDL Cholesterol HDL Cholesterol Heart Disease Risk Ratio Free T4 TSH 3rd Generation 03/31/17 04/01/17 04/01/17 21:43 03:38 03:38 WBC 10.2 RBC 3.64 L Hgb 10.9 L Hct 33.2 L MCV 91.2 MCH 30 MCHC 32.8 RDW 15.4 Plt Count 149 MPV 11.0 Neut % (Auto) 64.4 Lymph % (Auto) 21.0 L [place] % (Auto) 10.3 Eos % (Auto) 3.4 Baso % (Auto) 0.2 Neut # (Auto) 6.6 Lymph # (Auto) 2.1 [place] # (Auto) 1.1 H Eos # (Auto) 0.4 Baso # (Auto) 0.0 Immature Gran % 0.7 Nucleated RBC % 0.0 Immature Gran # 0.07 Nucleated RBCs # 0.00 Sodium Potassium Chloride Carbon Dioxide Anion Gap BUN Creatinine GFR Calculation BUN/Creatinine Ratio Glucose POC Glucose 197 H Calculated Osmolality Calcium Magnesium Total Bilirubin Direct Bilirubin Indirect Bilirubin AST ALT Alkaline Phosphatase Total Creatine Kinase CK-MB (CK-2) Troponin I Total Protein Albumin Globulin Albumin/Globulin Ratio Triglycerides 98 Cholesterol 89 LDL Cholesterol 39.0 VLDL Cholesterol 19.6 HDL Cholesterol 42 Heart Disease Risk Ratio 2.12 Free T4 1.14 TSH 3rd Generation 1.850 04/01/17 04/01/17 03:38 07:14 WBC RBC Hgb Hct MCV MCH MCHC RDW Plt Count MPV Neut % (Auto) Lymph % (Auto) [place] % (Auto) Eos % (Auto) Baso % (Auto) Neut # (Auto) Lymph # (Auto) [place] # (Auto) Eos # (Auto) Baso # (Auto) Immature Gran % Nucleated RBC % Immature Gran # Nucleated RBCs # Sodium 143 Potassium 4.2 Chloride 105 Carbon Dioxide 28 Anion Gap 14.2 BUN 41 H Creatinine 1.20 H GFR Calculation 48 BUN/Creatinine Ratio 34.00 H Glucose 84 POC Glucose 71 L Calculated Osmolality 293.0 Calcium 8.6 Magnesium 2.1 Total Bilirubin 1.10 H Direct Bilirubin 0.20 Indirect Bilirubin 0.9 AST 28 ALT 31 Alkaline Phosphatase 60 Total Creatine Kinase 96 D CK-MB (CK-2) < 1.0 Troponin I 0.335 H D Total Protein 5.7 L Albumin 3.2 L Globulin 2.5 Albumin/Globulin Ratio 1.2 Triglycerides Cholesterol LDL Cholesterol VLDL Cholesterol HDL Cholesterol Heart Disease Risk Ratio Free T4 TSH 3rd Generation Quality Measures - VTE Contraindication to Pharmacological VTE Prophylaxis: High Risk of Bleeding Specialty Discharge - Follow Up or Referrals
[2017-04-01] MEDS: EZETIMIBE 10 MG TABLET PO SCH (09:12)
[2017-04-01] MEDS: CHLORHEXIDINE 0.12% ORAL RINSE 60 ML BOTTLE SWISH/SPIT SCH ×2 (09:12→20:51)
[2017-04-01] MEDS: ASPIRIN EC 81 MG TABLET PO SCH (09:12)
[2017-04-01] MEDS: CHOLECALCIFEROL 1,000 UNIT TABLET PO SCH (09:12)
[2017-04-01] MEDS: CARVEDILOL 3.125 MG TABLET PO SCH ×2 (09:12→20:49)
[2017-04-01] MEDS: PANTOPRAZOLE 40 MG TABLET PO SCH (09:12)
[2017-04-01] MEDS: OMEGA 3 ACID ETHYL ESTERS 1 GM CAPSULE PO SCH ×2 (09:12→20:49)
[2017-04-01] MEDS: DOCUSATE SODIUM 100 MG CAPSULE PO SCH (09:12)
[2017-04-01] MEDS: INSULIN GLARGINE 100 UNIT/ML SUBCUT SCH (09:13)
[2017-04-01] MEDS: FERROUS SULFATE 325 MG TABLET PO SCH (09:13)
[2017-04-01] MEDS: GLIMEPIRIDE 4 MG TABLET PO SCH ×2 (09:13→21:03)
--- NOTE | 2017-04-01 09:14 | XRay Report ---
XR chest 1V portable Indication: Shortness of breath. Chest one view: Since yesterday, central line, cardiomegaly, median sternotomy wires and hazy obscuration of the left midlung and lung base are stable. No new infiltrates are seen. Impression: No change. PROCEDURE INTERPRETED AT [facility] DEPARTMENT OF RADIOLOGY Final Report Signed by: Edin Carlisle M.D.
--- NOTE | 2017-04-01 11:46 | Cardiology Progress Note ---
<Sandra Singh - Last Filed: 04/01/17 11:25> Assessment and Plan (1) Status post coronary artery bypass graft Status: Acute Assessment and plan: See plan of care listed below. Current Visit: Yes (2) CAD (coronary artery disease) Status: Chronic Assessment and plan: See plan of care listed below. Current Visit: Yes Qualifiers: Coronary Disease-Associated Artery/Lesion type: bypass graft [place] vs. transplanted heart: [place] heart (3) Dyslipidemia Status: Chronic Assessment and plan: See plan of care listed below. Current Visit: Yes (4) DM2 (diabetes mellitus, type 2) Status: Chronic Assessment and plan: See plan of care listed below. 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 Current Visit: Yes Cardiology - PN: Subj Interval history: Delivery Driver Assistant: New to Dr. Meléndez SUMMARY: Ms. George is a 71 year old female who has previously been followed by Dr. Lackey at [place]. She has a history of [place], hypertension, dyslipidemia, and NIDDM. Several months ago she underwent cardiac catheterization by Dr. Lackey who notified two-vessel coronary disease involving the left main and the right posterior descending coronary artery and the patient was considered for bypass surgery but medical therapy was elected at that time. She subsequently had 2 further episodes of chest discomfort. She was admitted to the emergency room where Dr. Lackye was contacted and recommended surgical bypass. She was then transferred to [facility] for CAB[facility]. She underwent CABG 03/29/[address] Lakhani with left internal mammary graft to the anterior descending coronary artery and saphenous vein graft to the posterior descending coronary artery. Postop day # 1 she was extubated and chest tubes were removed. She did require several units of blood products post surgery. After surgery, she requested to change to a best second jobs who practices at [facility], Cardiology was then consulted to follow. Patient was seen and examined on the telemetry unit. She continues to progress well postoperatively. She is postop day #3 today. She continues to complain of mild chest soreness. Surgical incisions are healing well without signs of infection. Troponin continues to trend down as expected. Creatinine is mildly elevated at 1.2. Vital signs are stable. Patient has remained in normal sinus rhythm heart rates in the 60s. We will continue to monitor patient on the telemetry unit. Assessment/plan: 1. STATUS POST CORONARY ARTERY BYPASS GRAFT: Continues to progress well postoperatively. Continue with routine postoperative protocol. 2. HYPERTENSION: This is stable at present. Continue current plan of care. 3.CAD: Now status post revascularization with left internal mammary graft to the anterior descending coronary artery and saphenous vein graft to the posterior descending coronary artery. Continue current plan of care with beta- rabia, aspirin and lipid-lowering agent. 4. DIABETES: Management per hospital medicine. 5. DYSLIPIDEMIA: Patient's preadmission medications included Zetia and Lipitor 40 mg daily. Patient's LDL noted to be 39. At this point, I will discontinue Zetia and decrease patient's Lipitor to 10 mg daily. Further plan and addendum to follow per Dr. Meléndez. Exam (Progress Note) - Constitutional Vitals: Period Temp Pulse Resp BP Sys/Campos Pulse Ox Last 24 Hr 96.1 F-98.4 F 62-87 18-20 95-124/53-63 88-98 Exam: General: Present: Appears Well, No Apparent Distress HEENT: Present: PERRL, Mucus Membranes Moist Neck: Present: Supple Neck, Midline Trachea, No Bruit, Cardiac: Present: Regular Rhythm, No Murmur Lungs: Present: Normal Breath Sounds, Oxygen (Via nasal cannula), No Wheeze, Rales, Rhonchi Neuro: Absent: Resting Tremor, Essential Tremor Abdomen: Present: Soft, Active Bowel Sounds, Non-Tender. Absent: Distended Skin: Absent: Rash, Ulceration Incision: Present: Incision Site (Sternal wound and right lower extremity look good) Gait: Present: Normal Gait Extremities: Present: Normal Gait, No Edema, Normal Upper Extr. Pulses, Normal Lower Extr. Pulses Result/EKG - Labs CBC & BMP: 04/01/17 03:38 04/01/17 03:38 Lab Results: I have reviewed the past 24 hour labs Labs: Laboratory Results - last 24 hr 03/31/17 03/31/17 03/31/17 11:44 15:23 21:43 WBC RBC Hgb Hct MCV MCH MCHC RDW Plt Count MPV Neut % (Auto) Lymph % (Auto) Adams % (Auto) Eos % (Auto) Baso % (Auto) Neut # (Auto) Lymph # (Auto) Adams # (Auto) Eos # (Auto) Baso # (Auto) Immature Gran % Nucleated RBC % Immature Gran # Nucleated RBCs # Sodium Potassium Chloride Carbon Dioxide Anion Gap BUN Creatinine GFR Calculation BUN/Creatinine Ratio Glucose POC Glucose 79 138 H 197 H Calculated Osmolality Calcium Magnesium Total Bilirubin Direct Bilirubin Indirect Bilirubin AST ALT Alkaline Phosphatase Total Creatine Kinase CK-MB (CK-2) Troponin I Total Protein Albumin Globulin Albumin/Globulin Ratio Triglycerides Cholesterol LDL Cholesterol VLDL Cholesterol HDL Cholesterol Heart Disease Risk Ratio Free T4 TSH 3rd Generation 04/01/17 04/01/17 04/01/17 03:38 03:38 03:38 WBC 10.2 RBC 3.64 L Hgb 10.9 L Hct 33.2 L MCV 91.2 MCH 30 MCHC 32.8 RDW 15.4 Plt Count 149 MPV 11.0 Neut % (Auto) 64.4 Lymph % (Auto) 21.0 L Adams % (Auto) 10.3 Eos % (Auto) 3.4 Baso % (Auto) 0.2 Neut # (Auto) 6.6 Lymph # (Auto) 2.1 Adams # (Auto) 1.1 H Eos # (Auto) 0.4 Baso # (Auto) 0.0 Immature Gran % 0.7 Nucleated RBC % 0.0 Immature Gran # 0.07 Nucleated RBCs # 0.00 Sodium 143 Potassium 4.2 Chloride 105 Carbon Dioxide 28 Anion Gap 14.2 BUN 41 H Creatinine 1.20 H GFR Calculation 48 BUN/Creatinine Ratio 34.00 H Glucose 84 POC Glucose Calculated Osmolality 293.0 Calcium 8.6 Magnesium 2.1 Total Bilirubin 1.10 H Direct Bilirubin 0.20 Indirect Bilirubin 0.9 AST 28 ALT 31 Alkaline Phosphatase 60 Total Creatine Kinase 96 D CK-MB (CK-2) < 1.0 Troponin I 0.335 H D Total Protein 5.7 L Albumin 3.2 L Globulin 2.5 Albumin/Globulin Ratio 1.2 Triglycerides 98 Cholesterol 89 LDL Cholesterol 39.0 VLDL Cholesterol 19.6 HDL Cholesterol 42 Heart Disease Risk Ratio 2.12 Free T4 1.14 TSH 3rd Generation 1.850 04/01/17 04/01/17 07:14 10:54 WBC RBC Hgb Hct MCV MCH MCHC RDW Plt Count MPV Neut % (Auto) Lymph % (Auto) Adams % (Auto) Eos % (Auto) Baso % (Auto) Neut # (Auto) Lymph # (Auto) Adams # (Auto) Eos # (Auto) Baso # (Auto) Immature Gran % Nucleated RBC % Immature Gran # Nucleated RBCs # Sodium Potassium Chloride Carbon Dioxide Anion Gap BUN Creatinine GFR Calculation BUN/Creatinine Ratio Glucose POC Glucose 71 L 104 Calculated Osmolality Calcium Magnesium Total Bilirubin Direct Bilirubin Indirect Bilirubin AST ALT Alkaline Phosphatase Total Creatine Kinase CK-MB (CK-2) Troponin I Total Protein Albumin Globulin Albumin/Globulin Ratio Triglycerides Cholesterol LDL Cholesterol VLDL Cholesterol HDL Cholesterol Heart Disease Risk Ratio Free T4 TSH 3rd Generation Quality Measures - VTE Contraindication to Pharmacological VTE Prophylaxis: High Risk of Bleeding Specialty Discharge - Follow Up or Referrals <Edin Meléndez - Last Filed: 04/01/17 16:07> Assessment and Plan (1) Status post coronary artery bypass graft Status: Acute Current Visit: Yes (2) Hypertension Status: Chronic Current Visit: Yes (3) CAD (coronary artery disease) Status: Chronic Current Visit: Yes Qualifiers: Coronary Disease-Associated Artery/Lesion type: bypass graft [place] vs. transplanted heart: [place] heart (4) DM2 (diabetes mellitus, type 2) Status: Chronic Current Visit: Yes Qualifiers: Diabetes mellitus complication status: with circulatory complication Diabetes mellitus complication detail: with other circulatory complications Diabetes mellitus custodial insulin use: with laborer marine terminal use Qualified Code(s) : E11.59 - Type 2 diabetes mellitus with other circulatory complications; Z79.4 - correction (current) use of insulin (5) Dyslipidemia Status: Chronic Current Visit: Yes Cardiology - PN: Subj Interval history: Patient personally interviewed and examined by me and chart reviewed. Case reviewed with Sandra Singh RN MARKET DEVELOPMENT SPECIALIST. I agree with the assessment and evaluation and plan. In summation addition the patient continues to make good progress post bypass surgery. She has not had any specific complaints other than typical postop soreness. Appetite is diminished some. She denies any shortness of breath palpitations or other symptomatology. She is not having any wound problems. She has been up in the room and in the hallway some. Her telemetry continues reveals sinus rhythm without any dysrhythmias. Her vital signs been stable as well as her heart rates. Exam HEENT: Atraumatic. General appearance: Alert cooperative no distress. Acuity: Atraumatic. Neck: Supple. Lungs: Clear and quiet. Cardiovascular: Regular rate and rhythm without gross murmur. Chest wall: Sternotomy wound looks good. Abdomen: Soft. Extremities: Right leg graft donor site looks good. Neurologic: Alert cooperative. No deficits Exam (Progress Note) - Constitutional Vitals: Period Temp Pulse Resp BP Sys/Campos Pulse Ox Last 24 Hr 96.1 F-98.4 F 62-72 18-20 95-124/55-63 93-98 Result/EKG - Labs CBC & BMP: 04/01/17 03:38 04/01/17 03:38 Labs: Laboratory Results - last 24 hr 03/31/17 03/31/17 04/01/17 15:23 21:43 03:38 WBC RBC Hgb Hct MCV MCH MCHC RDW Plt Count MPV Neut % (Auto) Lymph % (Auto) Adams % (Auto) Eos % (Auto) Baso % (Auto) Neut # (Auto) Lymph # (Auto) Adams # (Auto) Eos # (Auto) Baso # (Auto) Immature Gran % Nucleated RBC % Immature Gran # Nucleated RBCs # Sodium Potassium Chloride Carbon Dioxide Anion Gap BUN Creatinine GFR Calculation BUN/Creatinine Ratio Glucose POC Glucose 138 H 197 H Calculated Osmolality Calcium Magnesium Total Bilirubin Direct Bilirubin Indirect Bilirubin AST ALT Alkaline Phosphatase Total Creatine Kinase CK-MB (CK-2) Troponin I Total Protein Albumin Globulin Albumin/Globulin Ratio Triglycerides 98 Cholesterol 89 LDL Cholesterol 39.0 VLDL Cholesterol 19.6 HDL Cholesterol 42 Heart Disease Risk Ratio 2.12 Free T4 1.14 TSH 3rd Generation 1.850 04/01/17 04/01/17 04/01/17 03:38 03:38 07:14 WBC 10.2 RBC 3.64 L Hgb 10.9 L Hct 33.2 L MCV 91.2 MCH 30 MCHC 32.8 RDW 15.4 Plt Count 149 MPV 11.0 Neut % (Auto) 64.4 Lymph % (Auto) 21.0 L Adams % (Auto) 10.3 Eos % (Auto) 3.4 Baso % (Auto) 0.2 Neut # (Auto) 6.6 Lymph # (Auto) 2.1 Adams # (Auto) 1.1 H Eos # (Auto) 0.4 Baso # (Auto) 0.0 Immature Gran % 0.7 Nucleated RBC % 0.0 Immature Gran # 0.07 Nucleated RBCs # 0.00 Sodium 143 Potassium 4.2 Chloride 105 Carbon Dioxide 28 Anion Gap 14.2 BUN 41 H Creatinine 1.20 H GFR Calculation 48 BUN/Creatinine Ratio 34.00 H Glucose 84 POC Glucose 71 L Calculated Osmolality 293.0 Calcium 8.6 Magnesium 2.1 Total Bilirubin 1.10 H Direct Bilirubin 0.20 Indirect Bilirubin 0.9 AST 28 ALT 31 Alkaline Phosphatase 60 Total Creatine Kinase 96 D CK-MB (CK-2) < 1.0 Troponin I 0.335 H D Total Protein 5.7 L Albumin 3.2 L Globulin 2.5 Albumin/Globulin Ratio 1.2 Triglycerides Cholesterol LDL Cholesterol VLDL Cholesterol HDL Cholesterol Heart Disease Risk Ratio Free T4 TSH 3rd Generation 04/01/17 10:54 WBC RBC Hgb Hct MCV MCH MCHC RDW Plt Count MPV Neut % (Auto) Lymph % (Auto) Adams % (Auto) Eos % (Auto) Baso % (Auto) Neut # (Auto) Lymph # (Auto) Adams # (Auto) Eos # (Auto) Baso # (Auto) Immature Gran % Nucleated RBC % Immature Gran # Nucleated RBCs # Sodium Potassium Chloride Carbon Dioxide Anion Gap BUN Creatinine GFR Calculation BUN/Creatinine Ratio Glucose POC Glucose 104 Calculated Osmolality Calcium Magnesium Total Bilirubin Direct Bilirubin Indirect Bilirubin AST ALT Alkaline Phosphatase Total Creatine Kinase CK-MB (CK-2) Troponin I Total Protein Albumin Globulin Albumin/Globulin Ratio Triglycerides Cholesterol LDL Cholesterol VLDL Cholesterol HDL Cholesterol Heart Disease Risk Ratio Free T4 TSH 3rd Generation
[2017-04-01] MEDS: ATORVASTATIN 10 MG TABLET PO SCH (20:49)
[2017-04-01] MEDS: ACETAMINOPHEN 325 MG TABLET PO PRN (20:49)
[2017-04-01] MEDS: AMITRIPTYLINE 10 MG TABLET PO SCH (20:49)
[2017-04-01] MEDS ORDERED: ATORVASTATIN 40 MG TABLET PO SCH (21:00)
[2017-04-02] MEDS: KETOROLAC 30 MG/1 ML VIAL IV SCH (05:31)
[2017-04-02 06:28] LABS: Calcium 8.3 MG/DL (8.5-10.1); Magnesium 2.1 MG/DL (1.8-2.4); Osmolality,Calculated 291.1 MOS/KG (273-304); Potassium 4.2 MMOL/L (3.5-5.1)
[2017-04-02] MEDS: INSULIN LISPRO 100 UNIT/ML SUBCUT SCH ×4 (07:56→20:58)
--- NOTE | 2017-04-02 09:07 | Cardiothoracic Progress Note ---
Cardiothoracic Subjective Interval history: Patient is awake and alert and responsive. She is breathing comfortably and her vital signs are stable. She has been ambulating in the hallway with minimal assistance. We will gradually increase her activity according to routine postoperative protocol. Overall her progress is satisfactory. Exam (Progress Note) - Constitutional Vitals: Period Temp Pulse Resp BP Sys/Campos Pulse Ox Last 24 Hr 96.5 F-99.4 F 59-71 18-20 86-131/46-58 93-99 Result/EKG - Labs CBC & BMP: 04/01/17 03:38 04/02/17 05:14 Labs: Laboratory Results - last 24 hr 04/01/17 04/01/17 04/01/17 10:54 16:08 21:00 Sodium Potassium Chloride Carbon Dioxide Anion Gap BUN Creatinine GFR Calculation BUN/Creatinine Ratio Glucose POC Glucose 104 121 H 239 H Calculated Osmolality Calcium Magnesium 04/02/17 04/02/17 05:14 07:21 Sodium 142 Potassium 4.2 Chloride 106 Carbon Dioxide 29 Anion Gap 11.2 BUN 34 H Creatinine 0.90 GFR Calculation 68 BUN/Creatinine Ratio 37.00 H Glucose 113 H POC Glucose 113 H Calculated Osmolality 291.1 Calcium 8.3 L Magnesium 2.1 Quality Measures - VTE Contraindication to Pharmacological VTE Prophylaxis: High Risk of Bleeding Specialty Discharge - Follow Up or Referrals
[2017-04-02] MEDS: CARVEDILOL 3.125 MG TABLET PO SCH ×2 (10:15→20:57)
[2017-04-02] MEDS: FERROUS SULFATE 325 MG TABLET PO SCH (10:15)
[2017-04-02] MEDS: CHOLECALCIFEROL 1,000 UNIT TABLET PO SCH (10:15)
[2017-04-02] MEDS: ASPIRIN EC 81 MG TABLET PO SCH (10:16)
[2017-04-02] MEDS: INSULIN GLARGINE 100 UNIT/ML SUBCUT SCH (10:16)
[2017-04-02] MEDS: OMEGA 3 ACID ETHYL ESTERS 1 GM CAPSULE PO SCH ×2 (10:16→20:58)
[2017-04-02] MEDS: PANTOPRAZOLE 40 MG TABLET PO SCH (10:16)
[2017-04-02] MEDS: DOCUSATE SODIUM 100 MG CAPSULE PO SCH (10:16)
[2017-04-02] MEDS: GLIMEPIRIDE 4 MG TABLET PO SCH ×2 (10:16→20:57)
[2017-04-02] MEDS: CHLORHEXIDINE 0.12% ORAL RINSE 60 ML BOTTLE SWISH/SPIT SCH ×2 (10:17→20:59)
--- NOTE | 2017-04-02 10:49 | Cardiology Progress Note ---
<Helen Ventura E - Last Filed: 04/02/17 10:50> Assessment and Plan - Time spent with patient Time spent with patient: Greater than 30 minutes (1) Status post coronary artery bypass graft Status: Chronic Assessment and plan: SEE PLAN OF CARE LISTED BELOW Current Visit: Yes (2) CAD (coronary artery disease) Status: Chronic Assessment and plan: SEE PLAN OF CARE LISTED BELOW Current Visit: Yes Qualifiers: Coronary Disease-Associated Artery/Lesion type: bypass graft [place] vs. 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 Meléndez SUMMARY: Ms. George is a 71 year old female who has previously been followed by Dr. Lackey at [place]. She has a history of [place], hypertension, dyslipidemia, and NIDDM. Several months ago she underwent cardiac catheterization by Dr. Lackey who notified two-vessel coronary disease involving the left main and the right posterior descending coronary artery and the patient was considered for bypass surgery but medical therapy was elected at that time. She subsequently had 2 further episodes of chest discomfort. She was admitted to the emergency room where Dr. Lackey was contacted and recommended surgical bypass. She was then transferred to [facility] for CABG. She underwent CABG 03/29/[address] Lakhani with left internal mammary graft to the anterior descending coronary artery and saphenous vein graft to the posterior descending coronary artery. Postop day # 1 she was extubated and chest tubes were removed. She did require several units of blood products post surgery. After surgery, she requested to change to a manager engagement who practices at [facility], Cardiology was then consulted to follow. APRIL 02, 2017: POD 4. Overnight, patient continues to improve. She has been ambulating throughout the hallways today without chest pain, heaviness or tightness. Sternotomy healing well without dehiscence or drainage. Assessment/plan: 1. STATUS POST CORONARY ARTERY BYPASS GRAFT (GEIGER - LAD, SVG - PDA) - POD 4. Progressing nicely. Hope to be discharged home soon. Continues to take Aspirin, Atorvastatin, Carvedilol. Blood pressure will not allow for introduction of an AMELIA inhibitor at this time. 2. HYPERTENSION - Well-controlled. Continue current plan of care. 3. CAD - Now status post revascularization. Will follow-up with Dr. Meléndez after discharge. 4. DIABETES - Management per hospital medicine. 5. DYSLIPIDEMIA - Low dose Atorvastatin, LDL 39. Exam (Progress Note) - Constitutional Vitals: Period Temp Pulse Resp BP Sys/Campos Pulse Ox Last 24 Hr 96.5 F-99.4 F 59-71 18-20 86-131/46-58 93-99 Exam: General: [Appears well with no apparent distress.] [Pleasant and cooperative. ] [Appears comfortable.] HEENT: [PERRL, normocephalic, atraumatic. Mucous membranes moist. No jaundice noted. Conjunctiva moist and clear, sclerae anicteric] Neck: No JVD/HJR, no thyromegaly or lymphadenopathy noted. No carotid bruit appreciated Cardiac: [Regular rate and rhythm.] [No obvious murmur, rub or gallop.] Sternotomy healing well without dehiscence or drainage. No sternal rocking noted. Mild ecchymosis noted. Lungs: [Clear to auscultation without accessory muscle use to assist the respiratory pattern.] Not requiring oxygen Abdomen: Soft, bowel sounds normoactive. Nontender and nondistended. No abdominal bruit or thrill noted. No masses noted. Musculoskeletal: No fluid collection. Decreased range of motion is noted. Extremities: No clubbing, cyanosis noted. [ No edema noted.] Upper extremity pulses 2+. Lower extremity pulses 2+. Right lower extremity harvest site healing well without dehiscence or drainage. Skin: No unusual lesions or rashes. No skin breakdown appreciated. Neuro: Awake, alert and oriented 3. Moves all extremities well without hemiparesis or paralysis. No essential tremor is appreciated. Result/EKG - Labs CBC & BMP: 04/01/17 03:38 04/02/17 05:14 Lab Results: I have reviewed the past 24 hour labs Labs: Laboratory Results - last 24 hr 04/01/17 04/01/17 04/01/17 10:54 16:08 21:00 Sodium Potassium Chloride Carbon Dioxide Anion Gap BUN Creatinine GFR Calculation BUN/Creatinine Ratio Glucose POC Glucose 104 121 H 239 H Calculated Osmolality Calcium Magnesium 04/02/17 04/02/17 05:14 07:21 Sodium 142 Potassium 4.2 Chloride 106 Carbon Dioxide 29 Anion Gap 11.2 BUN 34 H Creatinine 0.90 GFR Calculation 68 BUN/Creatinine Ratio 37.00 H Glucose 113 H POC Glucose 113 H Calculated Osmolality 291.1 Calcium 8.3 L Magnesium 2.1 - Diagnostic Findings Procedure: Chest x-ray: report reviewed by me - EKG EKG results: interpreted by me EKG shows: sinus rhythm Quality Measures - VTE Contraindication to Pharmacological VTE Prophylaxis: High Risk of Bleeding Specialty Discharge - Follow Up or Referrals <Edin Meléndez Josep - Last Filed: 04/02/17 14:44> Assessment and Plan (1) Status post coronary artery bypass graft Status: Chronic Current Visit: Yes (2) Hypertension Status: Chronic Current Visit: Yes (3) CAD (coronary artery disease) Status: Chronic Current Visit: Yes Qualifiers: Coronary Disease-Associated Artery/Lesion type: bypass graft [place] vs. transplanted heart: [place] heart (4) DM2 (diabetes mellitus, type 2) Status: Chronic Current Visit: Yes Qualifiers: Diabetes mellitus complication status: with circulatory complication Diabetes mellitus complication detail: with other circulatory complications Diabetes mellitus [facility] insulin use: with silk screen printer use Qualified Code(s) : E11.59 - Type 2 diabetes mellitus with other circulatory complications; Z79.4 - penitentiary (current) use of insulin (5) Dyslipidemia Status: Chronic Current Visit: Yes Cardiology - PN: Subj Interval history: Patient personally interviewed and examined and chart reviewed. I discussed the case with Helen Ventura NP. I agree with the assessment and evaluation and plan. Patient is doing well post bypass surgery. She has had no dysrhythmias shortness of breath or other symptomatology. Her appetite still diminished. She has had minimal postop pain. She is only walking in the [place] and active. She generally is doing well we will continue her progress in postoperative recovery. Hopefully she will be her to go home the next couple days. We will arrange follow-up at the time of discharge. Exam (Progress Note) - Constitutional Vitals: Period Temp Pulse Resp BP Sys/Campos Pulse Ox Last 24 Hr 96.5 F-99.4 F 59-71 18-20 86-131/46-70 92-99 Result/EKG - Labs CBC & BMP: 04/01/17 03:38 04/02/17 05:14 Labs: Laboratory Results - last 24 hr 04/01/17 04/01/17 04/02/17 16:08 21:00 05:14 Sodium 142 Potassium 4.2 Chloride 106 Carbon Dioxide 29 Anion Gap 11.2 BUN 34 H Creatinine 0.90 GFR Calculation 68 BUN/Creatinine Ratio 37.00 H Glucose 113 H POC Glucose 121 H 239 H Calculated Osmolality 291.1 Calcium 8.3 L Magnesium 2.1 04/02/17 04/02/17 07:21 11:29 Sodium Potassium Chloride Carbon Dioxide Anion Gap BUN Creatinine GFR Calculation BUN/Creatinine Ratio Glucose POC Glucose 113 H 154 H Calculated Osmolality Calcium Magnesium
--- NOTE | 2017-04-02 12:19 | Event Note ---
Hospitalist note Patient doing well without any events overnight. Blood sugars Are well controlled with sliding scale insulin and Accu-Cheks. Continue routine postop care by cardio thoracic surgery. Cardiology following. We will sign off. Call as needed. Thank you for allowing us to participate in the care of your patient.
[2017-04-02] MEDS: ATORVASTATIN 10 MG TABLET PO SCH (20:57)
[2017-04-02] MEDS: AMITRIPTYLINE 10 MG TABLET PO SCH (20:58)
[2017-04-03 04:45] LABS: Basophils % 0.4 % (0.0-0.8); Eosinophils # 0.5 10*3/uL (0.0-0.87); Eosinophils % 5.7 % (0.00-10.9); Hematocrit 33.2 VOL% (35.7-47.0); Hemoglobin 11.1 GM/DL (12.0-16.0); Immature Granulocytes % 0.2 %; Immature Granulocytes Absolute 0.02 #; Lymphocytes # 1.6 10*3/uL (1.4-4.0); Lymphocytes % 19.5 % (21.3-54.2); Mean Corpuscular HGB Conc 33.4 GM/DL (32-36); Mean Corpuscular Hemoglobin 30 PG (27-34); Mean Corpuscular Volume 89.7 FL (87-102); Mean Platelet Volume 9.8 FL (9.6-12.0); Monocytes # 1.1 10*3/uL (0.11-0.8); Neutrophils # 5.1 10*3/uL (1.4-7.4); Neutrophils % 61.2 % (38.7-73.9); Platelet Count 168 T/CUMM (130-400); Red Cell Distribution Width 14.1 % (9.3-17.3); White Blood Count 8.3 T/CUMM (4-12)
[2017-04-03 05:19] LABS: Alanine Aminotransferase 68 U/L (13-56); Albumin 2.9 G/DL (3.4-5.0); Alkaline Phosphatase 86 U/L (45-117); Aspartate Amino Transferase 65 U/L (0-37); Bilirubin,Indirect 1.8 MG/DL (0.0-1.0); Blood Urea Nitrogen 20 MG/DL (7-18); Glucose 70 MG/DL (74-106); Magnesium 1.8 MG/DL (1.8-2.4); Osmolality,Calculated 279.4 MOS/KG (273-304); Sodium 140 MMOL/L (136-145); Total Protein 5.5 G/DL (6.4-8.3)
[2017-04-03 05:44] LABS: Troponin I Only 0.124 NG/ML (0.00-0.045)
[2017-04-03] MEDS: INSULIN LISPRO 100 UNIT/ML SUBCUT SCH ×4 (07:55→21:37)
[2017-04-03] MEDS: CHOLECALCIFEROL 1,000 UNIT TABLET PO SCH (08:33)
[2017-04-03] MEDS: ASPIRIN EC 81 MG TABLET PO SCH (08:33)
[2017-04-03] MEDS: GLIMEPIRIDE 4 MG TABLET PO SCH ×2 (08:33→21:36)
[2017-04-03] MEDS: OMEGA 3 ACID ETHYL ESTERS 1 GM CAPSULE PO SCH ×2 (08:33→21:36)
[2017-04-03] MEDS: CARVEDILOL 3.125 MG TABLET PO SCH ×2 (08:34→21:37)
[2017-04-03] MEDS: CHLORHEXIDINE 0.12% ORAL RINSE 60 ML BOTTLE SWISH/SPIT SCH ×2 (08:34→21:40)
[2017-04-03] MEDS: DOCUSATE SODIUM 100 MG CAPSULE PO SCH (08:34)
[2017-04-03] MEDS: PANTOPRAZOLE 40 MG TABLET PO SCH (08:34)
[2017-04-03] MEDS: INSULIN GLARGINE 100 UNIT/ML SUBCUT SCH (08:37)
--- NOTE | 2017-04-03 09:07 | Cardiothoracic Progress Note ---
Cardiothoracic Subjective Interval history: Patient is doing well. Vital signs are stable and she is breathing comfortably. Chest x-ray today does show what appears to be a fairly significant left pleural effusion. She is basically ready to go home but I would like to have the effusion tapped if that is possible per interventional radiology. We will hold her in the hospital until they are able to do this. Exam (Progress Note) - Constitutional Vitals: Period Temp Pulse Resp BP Sys/Campos Pulse Ox Last 24 Hr 97.4 F-99.4 F 67-77 16-20 118-136/58-70 86-94 Result/EKG - Labs CBC & BMP: 04/03/17 04:31 04/03/17 04:31 Labs: Laboratory Results - last 24 hr 04/02/17 04/02/17 04/02/17 11:29 17:11 20:25 WBC RBC Hgb Hct MCV MCH MCHC RDW Plt Count MPV Neut % (Auto) Lymph % (Auto) [place] % (Auto) Eos % (Auto) Baso % (Auto) Neut # (Auto) Lymph # (Auto) [place] # (Auto) Eos # (Auto) Baso # (Auto) Immature Gran % Nucleated RBC % Immature Gran # Nucleated RBCs # Sodium Potassium Chloride Carbon Dioxide Anion Gap BUN Creatinine GFR Calculation BUN/Creatinine Ratio Glucose POC Glucose 154 H 116 H 165 H Calculated Osmolality Calcium Magnesium Total Bilirubin Direct Bilirubin Indirect Bilirubin AST ALT Alkaline Phosphatase Total Creatine Kinase CK-MB (CK-2) Troponin I Total Protein Albumin Globulin Albumin/Globulin Ratio 04/03/17 04/03/17 04/03/17 04:31 04:31 06:40 WBC 8.3 RBC 3.70 L Hgb 11.1 L Hct 33.2 L MCV 89.7 MCH 30 MCHC 33.4 RDW 14.1 Plt Count 168 MPV 9.8 Neut % (Auto) 61.2 Lymph % (Auto) 19.5 L [place] % (Auto) 13.0 H Eos % (Auto) 5.7 Baso % (Auto) 0.4 Neut # (Auto) 5.1 Lymph # (Auto) 1.6 [place] # (Auto) 1.1 H Eos # (Auto) 0.5 Baso # (Auto) 0.0 Immature Gran % 0.2 Nucleated RBC % 0.0 Immature Gran # 0.02 Nucleated RBCs # 0.00 Sodium 140 Potassium 4.0 Chloride 105 Carbon Dioxide 28 Anion Gap 11.0 BUN 20 H D Creatinine 0.90 GFR Calculation 68 BUN/Creatinine Ratio 22.00 H Glucose 70 L POC Glucose 77 Calculated Osmolality 279.4 Calcium 8.0 L Magnesium 1.8 Total Bilirubin 2.10 H Direct Bilirubin 0.30 H Indirect Bilirubin 1.8 H AST 65 H ALT 68 H Alkaline Phosphatase 86 Total Creatine Kinase 48 D CK-MB (CK-2) < 1.0 Troponin I 0.124 H D Total Protein 5.5 L Albumin 2.9 L Globulin 2.6 Albumin/Globulin Ratio 1.1 Quality Measures - VTE Contraindication to Pharmacological VTE Prophylaxis: High Risk of Bleeding Specialty Discharge - Follow Up or Referrals
--- NOTE | 2017-04-03 09:12 | XRay Report ---
XR chest 2V Indication: Shortness of breath Comparison: 01 Apr 2017 Findings: The heart and mediastinum are stable in size and configuration. Right internal jugular catheters unchanged in position. The pulmonary vascularity is normal in caliber. Left lower lung density and effusion are stable in appearance. No other lung infiltrates, effusions, pneumothorax or other abnormality is demonstrated. Impression: No significant change. PROCEDURE INTERPRETED AT [facility] DEPARTMENT OF RADIOLOGY Final Report Signed by: Dr. Maverick Maher
--- NOTE | 2017-04-03 09:34 | Cardiology Progress Note ---
Assessment and Plan (1) Status post coronary artery bypass graft Status: Chronic Assessment and plan: She is doing well postoperatively. Does have a left pleural effusion that is being monitored. Current Visit: Yes (2) Hypertension Status: Chronic Assessment and plan: Blood pressures remain stable. Current Visit: Yes (3) CAD (coronary artery disease) Status: Chronic Assessment and plan: Now post coronary bypass surgery and making good progress with the exception of a left pleural effusion. Current Visit: Yes Qualifiers: Coronary Disease-Associated Artery/Lesion type: bypass graft [place] vs. transplanted heart: [place] heart (4) DM2 (diabetes mellitus, type 2) Status: Chronic Assessment and plan: This is being monitored on protocol. Current Visit: Yes Qualifiers: Diabetes mellitus complication status: with circulatory complication Diabetes mellitus complication detail: with other circulatory complications Diabetes mellitus skilled nursing insulin use: with intermediate frame tender use Qualified Code(s) : E11.59 - Type 2 diabetes mellitus with other circulatory complications; Z79.4 - residential (current) use of insulin (5) Dyslipidemia Status: Chronic Assessment and plan: The patient lipids are stable but she has been on atorvastatin 40 mg at bedtime at home rather than 10 mg ordered here. Going to increase her back to her home dosing. Current Visit: Yes Cardiology - PN: Subj Interval history: Patient doing well post procedure except for she is dyspneic getting up and around. She has had no dysrhythmias palpitations. Her appetite still poor. She has had no issues with her surgical sites. Her chest x-ray continues show a left pleural effusion and question whether not it will be tapped. Dr. Lakhani is following that with this. Exam (Progress Note) - Constitutional Vitals: Period Temp Pulse Resp BP Sys/Campos Pulse Ox Last 24 Hr 97.4 F-99.4 F 67-77 16-20 118-136/58-70 86-94 Exam: General appearance: normal weight, no acute distress, lying flat in bed HEENT exam: normal inspection, atraumatic Neck exam: normal inspection no JVD. No carotid bruit. Trachea is in midline Respiratory/lungs exam: clear to auscultation bilaterally good air movement. Cardiovascular exam: regular rate and rhythm, no murmur or gallop or rub. No precordial lift. Chest wall exam: Healing sternotomy scar that looks good. GI/Abdominal exam: normal bowel sounds, soft, nontender, no abdominal bruits or pulsatile masses. Extremeties/musculoskeletal: Right lower leg graft donor incision looks good. Neurological exam: alert, oriented X3, no focal deficits Psychiatric exam: normal affect, normal mood. Cognitive function is grossly normal. Skin exam: normal color, warm Result/EKG - Labs CBC & BMP: 04/03/17 04:31 04/03/17 04:31 Lab Results: I have reviewed the past 24 hour labs Labs: Laboratory Results - last 24 hr 04/02/17 04/02/17 04/02/17 11:29 17:11 20:25 WBC RBC Hgb Hct MCV MCH MCHC RDW Plt Count MPV Neut % (Auto) Lymph % (Auto) [place] % (Auto) Eos % (Auto) Baso % (Auto) Neut # (Auto) Lymph # (Auto) [place] # (Auto) Eos # (Auto) Baso # (Auto) Immature Gran % Nucleated RBC % Immature Gran # Nucleated RBCs # Sodium Potassium Chloride Carbon Dioxide Anion Gap BUN Creatinine GFR Calculation BUN/Creatinine Ratio Glucose POC Glucose 154 H 116 H 165 H Calculated Osmolality Calcium Magnesium Total Bilirubin Direct Bilirubin Indirect Bilirubin AST ALT Alkaline Phosphatase Total Creatine Kinase CK-MB (CK-2) Troponin I Total Protein Albumin Globulin Albumin/Globulin Ratio 04/03/17 04/03/17 04/03/17 04:31 04:31 06:40 WBC 8.3 RBC 3.70 L Hgb 11.1 L Hct 33.2 L MCV 89.7 MCH 30 MCHC 33.4 RDW 14.1 Plt Count 168 MPV 9.8 Neut % (Auto) 61.2 Lymph % (Auto) 19.5 L [place] % (Auto) 13.0 H Eos % (Auto) 5.7 Baso % (Auto) 0.4 Neut # (Auto) 5.1 Lymph # (Auto) 1.6 [place] # (Auto) 1.1 H Eos # (Auto) 0.5 Baso # (Auto) 0.0 Immature Gran % 0.2 Nucleated RBC % 0.0 Immature Gran # 0.02 Nucleated RBCs # 0.00 Sodium 140 Potassium 4.0 Chloride 105 Carbon Dioxide 28 Anion Gap 11.0 BUN 20 H D Creatinine 0.90 GFR Calculation 68 BUN/Creatinine Ratio 22.00 H Glucose 70 L POC Glucose 77 Calculated Osmolality 279.4 Calcium 8.0 L Magnesium 1.8 Total Bilirubin 2.10 H Direct Bilirubin 0.30 H Indirect Bilirubin 1.8 H AST 65 H ALT 68 H Alkaline Phosphatase 86 Total Creatine Kinase 48 D CK-MB (CK-2) < 1.0 Troponin I 0.124 H D Total Protein 5.5 L Albumin 2.9 L Globulin 2.6 Albumin/Globulin Ratio 1.1 - Impressions Impressions: Telemetry normal sinus rhythm without dysrhythmias. Quality Measures - VTE Contraindication to Pharmacological VTE Prophylaxis: High Risk of Bleeding Specialty Discharge - Follow Up or Referrals
[2017-04-03] MEDS: FERROUS SULFATE 325 MG TABLET PO SCH (09:42)
[2017-04-03] MEDS: ACETAMINOPHEN 325 MG TABLET PO PRN (18:55)
[2017-04-03] MEDS: AMITRIPTYLINE 10 MG TABLET PO SCH (21:36)
[2017-04-03] MEDS: ATORVASTATIN 40 MG TABLET PO SCH (21:36)
[2017-04-04 04:24] LABS: Basophils % 0.3 % (0.0-0.8); Eosinophils # 0.5 10*3/uL (0.0-0.87); Eosinophils % 5.6 % (0.00-10.9); Hematocrit 34.2 VOL% (35.7-47.0); Hemoglobin 11.3 GM/DL (12.0-16.0); Immature Granulocytes % 0.4 %; Immature Granulocytes Absolute 0.04 #; Lymphocytes # 1.6 10*3/uL (1.4-4.0); Lymphocytes % 16.6 % (21.3-54.2); Mean Corpuscular Hemoglobin 30 PG (27-34); Mean Corpuscular Volume 90.7 FL (87-102); Mean Platelet Volume 9.7 FL (9.6-12.0); Monocytes # 1.2 10*3/uL (0.11-0.8); Monocytes % 12.9 % (1.7-12.7); Neutrophils # 6.1 10*3/uL (1.4-7.4); Neutrophils % 64.2 % (38.7-73.9); Platelet Count 168 T/CUMM (130-400); Red Blood Count 3.77 MC/CUMM (3.8-5.5); Red Cell Distribution Width 14.1 % (9.3-17.3); White Blood Count 9.5 T/CUMM (4-12)
[2017-04-04 04:48] LABS: Calcium 8.5 MG/DL (8.5-10.1); Magnesium 1.7 MG/DL (1.8-2.4); Osmolality,Calculated 280.4 MOS/KG (273-304); Potassium 4.1 MMOL/L (3.5-5.1)
[2017-04-04 04:53] LABS: Alanine Aminotransferase 71 U/L (13-56); Albumin 2.9 G/DL (3.4-5.0); Alkaline Phosphatase 90 U/L (45-117); Aspartate Amino Transferase 58 U/L (0-37); Bilirubin,Indirect 0.9 MG/DL (0.0-1.0); Blood Urea Nitrogen 19 MG/DL (7-18); Calcium 8.5 MG/DL (8.5-10.1); Glucose 97 MG/DL (74-106); Magnesium 1.7 MG/DL (1.8-2.4); Osmolality,Calculated 280.4 MOS/KG (273-304); Potassium 4.1 MMOL/L (3.5-5.1); Sodium 140 MMOL/L (136-145); Total Protein 5.9 G/DL (6.4-8.3)
[2017-04-04 04:55] LABS: Troponin I Only 0.081 NG/ML (0.00-0.045)
--- NOTE | 2017-04-04 07:13 | EKG Report ---
Stationary ECG Study [facility] Test Date: 04/04/2017 7:12:42 AM Pat Name: KEVIN RECIO Department: Room: 262 Gender: F Rice Farmer: ROBERT : 1945 Requested by: Raúl Lopez Order Number: [id number] Reading MD: RENEE RODRIGUEZ Intervals [place] Rate: 73 P: 67 [place]: 125 QRS: 127 QRSD: 104 T: 153 QT: 412 QTc: 438 Interpretive Statements SINUS RHYTHM ST DEVIATION AND MODERATE T-WAVE ABNORMALITY Electronically Signed On 04-05-17 16:45:28 CDT by RENEE RODRIGUEZ [email or web address]
[2017-04-04] MEDS: INSULIN LISPRO 100 UNIT/ML SUBCUT SCH ×4 (07:22→21:10)
--- NOTE | 2017-04-04 08:03 | Cardiothoracic Progress Note ---
Cardiothoracic Subjective Interval history: Patient looks and feels okay this morning. She still has a fair amount of chest soreness and I have encouraged her to take her pain medicine if she needs it. She is increasing her activity and has minimal dyspnea with exertion. Her chest x-ray still shows a left pleural effusion which appears about the same as yesterday. I am going to ask interventional radiology to look at this in the morning to see if thoracentesis is feasible. She may be ready for discharge later tomorrow. Exam (Progress Note) - Constitutional Vitals: Period Temp Pulse Resp BP Sys/Campos Pulse Ox Last 24 Hr 97.2 F-98.6 F 64-82 16-20 107-119/51-62 92-94 Result/EKG - Labs CBC & BMP: 04/04/17 03:32 04/04/17 03:32 Labs: Laboratory Results - last 24 hr 04/03/17 04/03/17 04/03/17 11:29 15:10 20:18 WBC RBC Hgb Hct MCV MCH MCHC RDW Plt Count MPV Neut % (Auto) Lymph % (Auto) [place] % (Auto) Eos % (Auto) Baso % (Auto) Neut # (Auto) Lymph # (Auto) [place] # (Auto) Eos # (Auto) Baso # (Auto) Immature Gran % Nucleated RBC % Immature Gran # Nucleated RBCs # Sodium Potassium Chloride Carbon Dioxide Anion Gap BUN Creatinine GFR Calculation BUN/Creatinine Ratio Glucose POC Glucose 76 147 H 191 H Calculated Osmolality Calcium Magnesium Total Bilirubin Direct Bilirubin Indirect Bilirubin AST ALT Alkaline Phosphatase Total Creatine Kinase CK-MB (CK-2) Troponin I Total Protein Albumin Globulin Albumin/Globulin Ratio 04/04/17 04/04/17 04/04/17 03:32 03:32 03:32 WBC 9.5 RBC 3.77 L Hgb 11.3 L Hct 34.2 L MCV 90.7 MCH 30 MCHC 33.0 RDW 14.1 Plt Count 168 MPV 9.7 Neut % (Auto) 64.2 Lymph % (Auto) 16.6 L [place] % (Auto) 12.9 H Eos % (Auto) 5.6 Baso % (Auto) 0.3 Neut # (Auto) 6.1 Lymph # (Auto) 1.6 [place] # (Auto) 1.2 H Eos # (Auto) 0.5 Baso # (Auto) 0.0 Immature Gran % 0.4 Nucleated RBC % 0.0 Immature Gran # 0.04 Nucleated RBCs # 0.00 Sodium 140 140 Potassium 4.1 4.1 Chloride 105 105 Carbon Dioxide 27 27 Anion Gap 12.1 12.1 BUN 19 H 19 H Creatinine 0.90 0.90 GFR Calculation 68 68 BUN/Creatinine Ratio 21.00 H 21.00 H Glucose 97 100 POC Glucose Calculated Osmolality 280.4 280.4 Calcium 8.5 8.5 Magnesium 1.7 L 1.7 L Total Bilirubin 1.30 H Direct Bilirubin 0.40 H Indirect Bilirubin 0.9 AST 58 H ALT 71 H Alkaline Phosphatase 90 Total Creatine Kinase 37 D CK-MB (CK-2) < 1.0 Troponin I 0.081 H D Total Protein 5.9 L Albumin 2.9 L Globulin 3.0 Albumin/Globulin Ratio 0.9 L 04/04/17 07:10 WBC RBC Hgb Hct MCV MCH MCHC RDW Plt Count MPV Neut % (Auto) Lymph % (Auto) [place] % (Auto) Eos % (Auto) Baso % (Auto) Neut # (Auto) Lymph # (Auto) [place] # (Auto) Eos # (Auto) Baso # (Auto) Immature Gran % Nucleated RBC % Immature Gran # Nucleated RBCs # Sodium Potassium Chloride Carbon Dioxide Anion Gap BUN Creatinine GFR Calculation BUN/Creatinine Ratio Glucose POC Glucose 121 H Calculated Osmolality Calcium Magnesium Total Bilirubin Direct Bilirubin Indirect Bilirubin AST ALT Alkaline Phosphatase Total Creatine Kinase CK-MB (CK-2) Troponin I Total Protein Albumin Globulin Albumin/Globulin Ratio Quality Measures - VTE Contraindication to Pharmacological VTE Prophylaxis: High Risk of Bleeding Specialty Discharge - Follow Up or Referrals
[2017-04-04] MEDS: OMEGA 3 ACID ETHYL ESTERS 1 GM CAPSULE PO SCH ×2 (08:39→21:09)
[2017-04-04] MEDS: CARVEDILOL 3.125 MG TABLET PO SCH ×2 (08:39→21:09)
[2017-04-04] MEDS: ASPIRIN EC 81 MG TABLET PO SCH (08:39)
[2017-04-04] MEDS: DOCUSATE SODIUM 100 MG CAPSULE PO SCH (08:40)
[2017-04-04] MEDS: CHOLECALCIFEROL 1,000 UNIT TABLET PO SCH (08:40)
[2017-04-04] MEDS: GLIMEPIRIDE 4 MG TABLET PO SCH ×2 (08:40→21:09)
[2017-04-04] MEDS: PANTOPRAZOLE 40 MG TABLET PO SCH (08:40)
[2017-04-04] MEDS: oxyCODONE/ACETAMINOPHEN 5-325 MG TABLET PO PRN ×3 (08:40→21:09)
[2017-04-04] MEDS: FERROUS SULFATE 325 MG TABLET PO SCH (08:41)
[2017-04-04] MEDS: INSULIN GLARGINE 100 UNIT/ML SUBCUT SCH (08:41)
[2017-04-04] MEDS: CHLORHEXIDINE 0.12% ORAL RINSE 60 ML BOTTLE SWISH/SPIT SCH ×2 (08:45→21:08)
--- NOTE | 2017-04-04 09:24 | XRay Report ---
XR chest 2V Indication: Shortness of breath Comparison: 03 Apr 2017 Findings: The heart and mediastinum are stable in size and configuration cardiac surgery changes. Right internal jugular catheters unchanged in position. The pulmonary vascularity is normal in caliber. Left lower lung density and effusion are similar to previous exam. No other lung infiltrates, effusions, pneumothorax or other abnormality is demonstrated. Impression: No significant change. PROCEDURE INTERPRETED AT [facility] DEPARTMENT OF RADIOLOGY Final Report Signed by: Dr. Maverick Maher
--- NOTE | 2017-04-04 13:40 | Cardiology Progress Note ---
Assessment and Plan (1) Status post coronary artery bypass graft Status: Chronic Assessment and plan: She is doing well postoperatively. Does have a left pleural effusion that is being monitored thus far appears to be stable. Current Visit: Yes (2) Hypertension Status: Chronic Assessment and plan: Blood pressures remain stable. Continue present therapy. Current Visit: Yes (3) CAD (coronary artery disease) Status: Chronic Assessment and plan: Now post coronary bypass surgery and making good progress with the exception of a left pleural effusion. Current Visit: Yes Qualifiers: Coronary Disease-Associated Artery/Lesion type: bypass graft [place] vs. transplanted heart: [place] heart (4) DM2 (diabetes mellitus, type 2) Status: Chronic Assessment and plan: This is being monitored on protocol. Current Visit: Yes Qualifiers: Diabetes mellitus complication status: with circulatory complication Diabetes mellitus complication detail: with other circulatory complications Diabetes mellitus correction insulin use: with termite inspector use Qualified Code(s) : E11.59 - Type 2 diabetes mellitus with other circulatory complications; Z79.4 - [facility] (current) use of insulin (5) Dyslipidemia Status: Chronic Assessment and plan: Continue her statin drug. Current Visit: Yes Cardiology - PN: Subj Interval history: Patient made good progress. She is sitting up in a chair this time. She is visiting with a wound for family. She has no specific complaints. She a little fatigue and shortness of breath early this morning but has been ambulating in the hallway. Patient's vital signs are stable. ECG was sinus rhythm with diffuse anterior lateral T-wave abnormalities. Telemetry with normal sinus rhythm. Chest x-ray report noted. Still noted left pleural effusion. Patient's lab work is unremarkable. He is stable. Hopefully she will be her to be discharged tomorrow. Follow-up as an outpatient. Exam (Progress Note) - Constitutional Vitals: Period Temp Pulse Resp BP Sys/Campos Pulse Ox Last 24 Hr 97.4 F-98.6 F 70-82 16-20 101-119/51-63 92-95 Exam: General appearance: normal weight, no acute distress, lying flat in bed HEENT exam: normal inspection, atraumatic Neck exam: normal inspection no JVD. No carotid bruit. Trachea is in midline Respiratory/lungs exam: clear to auscultation bilaterally good air movement. Cardiovascular exam: regular rate and rhythm, no murmur or gallop or rub. No precordial lift. Chest wall exam: Healing sternotomy scar that looks good. GI/Abdominal exam: normal bowel sounds, soft, nontender, no abdominal bruits or pulsatile masses. Extremeties/musculoskeletal: Right lower leg graft donor incision looks good. Neurological exam: alert, oriented X3, no focal deficits Psychiatric exam: normal affect, normal mood. Cognitive function is grossly normal. Skin exam: normal color, warm Result/EKG - Labs CBC & BMP: 04/04/17 03:32 04/04/17 03:32 Lab Results: I have reviewed the past 24 hour labs (Lab is stable.) Labs: Laboratory Results - last 24 hr 04/03/17 04/03/17 04/04/17 15:10 20:18 03:32 WBC 9.5 RBC 3.77 L Hgb 11.3 L Hct 34.2 L MCV 90.7 MCH 30 MCHC 33.0 RDW 14.1 Plt Count 168 MPV 9.7 Neut % (Auto) 64.2 Lymph % (Auto) 16.[address] [place] % (Auto) 12.9 H Eos % (Auto) 5.6 Baso % (Auto) 0.3 Neut # (Auto) 6.1 Lymph # (Auto) 1.6 [place] # (Auto) 1.2 H Eos # (Auto) 0.5 Baso # (Auto) 0.0 Immature Gran % 0.4 Nucleated RBC % 0.0 Immature Gran # 0.04 Nucleated RBCs # 0.00 Sodium Potassium Chloride Carbon Dioxide Anion Gap BUN Creatinine GFR Calculation BUN/Creatinine Ratio Glucose POC Glucose 147 H 191 H Calculated Osmolality Calcium Magnesium Total Bilirubin Direct Bilirubin Indirect Bilirubin AST ALT Alkaline Phosphatase Total Creatine Kinase CK-MB (CK-2) Troponin I Total Protein Albumin Globulin Albumin/Globulin Ratio 04/04/17 04/04/17 04/04/17 03:32 03:32 07:10 WBC RBC Hgb Hct MCV MCH MCHC RDW Plt Count MPV Neut % (Auto) Lymph % (Auto) [place] % (Auto) Eos % (Auto) Baso % (Auto) Neut # (Auto) Lymph # (Auto) [place] # (Auto) Eos # (Auto) Baso # (Auto) Immature Gran % Nucleated RBC % Immature Gran # Nucleated RBCs # Sodium 140 140 Potassium 4.1 4.1 Chloride 105 105 Carbon Dioxide 27 27 Anion Gap 12.1 12.1 BUN 19 H 19 H Creatinine 0.90 0.90 GFR Calculation 68 68 BUN/Creatinine Ratio 21.00 H 21.00 H Glucose 97 100 POC Glucose 121 H Calculated Osmolality 280.4 280.4 Calcium 8.5 8.5 Magnesium 1.7 L 1.7 L Total Bilirubin 1.30 H Direct Bilirubin 0.40 H Indirect Bilirubin 0.9 AST 58 H ALT 71 H Alkaline Phosphatase 90 Total Creatine Kinase 37 D CK-MB (CK-2) < 1.0 Troponin I 0.081 H D Total Protein 5.9 L Albumin 2.9 L Globulin 3.0 Albumin/Globulin Ratio 0.9 L 04/04/17 11:11 WBC RBC Hgb Hct MCV MCH MCHC RDW Plt Count MPV Neut % (Auto) Lymph % (Auto) [place] % (Auto) Eos % (Auto) Baso % (Auto) Neut # (Auto) Lymph # (Auto) [place] # (Auto) Eos # (Auto) Baso # (Auto) Immature Gran % Nucleated RBC % Immature Gran # Nucleated RBCs # Sodium Potassium Chloride Carbon Dioxide Anion Gap BUN Creatinine GFR Calculation BUN/Creatinine Ratio Glucose POC Glucose 171 H Calculated Osmolality Calcium Magnesium Total Bilirubin Direct Bilirubin Indirect Bilirubin AST ALT Alkaline Phosphatase Total Creatine Kinase CK-MB (CK-2) Troponin I Total Protein Albumin Globulin Albumin/Globulin Ratio - Impressions Impressions: ECG was sinus rhythm with ST-T abnormalities inferior laterally. Quality Measures - VTE Contraindication to Pharmacological VTE Prophylaxis: High Risk of Bleeding Specialty Discharge - Follow Up or Referrals Follow up with: Edin Meléndez MD [Physician] - (3 weeks with ECG)
[2017-04-04] MEDS: ATORVASTATIN 40 MG TABLET PO SCH (21:09)
[2017-04-04] MEDS: AMITRIPTYLINE 10 MG TABLET PO SCH (21:09)
[2017-04-05 04:50] LABS: Basophils % 0.3 % (0.0-0.8); Eosinophils # 0.6 10*3/uL (0.0-0.87); Eosinophils % 6.4 % (0.00-10.9); Hematocrit 31.8 VOL% (35.7-47.0); Hemoglobin 10.8 GM/DL (12.0-16.0); Immature Granulocytes % 0.7 %; Immature Granulocytes Absolute 0.06 #; Lymphocytes # 2.2 10*3/uL (1.4-4.0); Lymphocytes % 24.6 % (21.3-54.2); Mean Corpuscular Hemoglobin 30 PG (27-34); Mean Corpuscular Volume 88.8 FL (87-102); Mean Platelet Volume 10.2 FL (9.6-12.0); Monocytes # 1.1 10*3/uL (0.11-0.8); Monocytes % 12.3 % (1.7-12.7); Neutrophils % 55.7 % (38.7-73.9); Platelet Count 186 T/CUMM (130-400); Red Blood Count 3.58 MC/CUMM (3.8-5.5); Red Cell Distribution Width 13.9 % (9.3-17.3); White Blood Count 8.9 T/CUMM (4-12)
[2017-04-05 05:21] LABS: Calcium 8.1 MG/DL (8.5-10.1); Magnesium 1.9 MG/DL (1.8-2.4); Osmolality,Calculated 282.4 MOS/KG (273-304); Potassium 4.1 MMOL/L (3.5-5.1)
[2017-04-05 05:53] LABS: Burr Cells Slight; Eosinophils 8 % (0-10); Hypochromasia 1+; Lymphocytes 14 % (20-55); Ovalocytes Slight; Platelet Estimate Normal; Segmented Neutrophils 66 % (50-85); Total Cells Counted 100
--- NOTE | 2017-04-05 06:15 | Discharge Summary ---
Hospital Course - Hospital Course Hospital Course: History of present illness: Patient is a 71-year-old lady who was [facility] with a chief complaint of chest discomfort. She had undergone cardiac catheterization several months prior to that admission at which time she was found to have significant two-vessel coronary disease but after discussion with the patient and election was made to pursue medical therapy. She has had increasing recurrence of chest discomfort and this prompts the present emergency room admission and it is felt at this time that she is ready for bypass surgery. She was transferred to this hospital for that purpose. Past medical history review of systems social history family history and physical examination are documented in her admission note. Hospital course: Patient was taken to surgery and two-vessel bypass grafting was performed with an internal mammary graft to the anterior descending coronary artery and a saphenous vein graft to the right posterior descending coronary artery. Postoperative course was entirely uncomplicated except for the development of a moderate left pleural effusion. She is to be seen by interventional radiology today for consideration of thoracentesis. The plan is for discharge today following her radiology consultation. She is to return for follow-up in 1 month and her discharge medications are listed below. Specialty Discharge - Follow Up or Referrals Follow up with: Edin Meléndez MD [Physician] - (3 weeks with ECG) Raúl Lakhani MD [Physician] - 1 Month Discharge Plan - Discharge Data Condition at Discharge: Stable Discharge Diet: advance to your usual diet Activity: resume usual activities as tolerated Hygiene: no restrictions Weight Bearing at Discharge: full weight bearing Driving: not until seen by doctor - Discharge Medications New Atorvastatin [Lipitor] 40 mg PO BEDTIME tablet Continue [place] 3 Acid Ethyl Esters [Lovaza] 1 gm PO BID Clopidogrel [Plavix] 75 mg PO DAILY Carvedilol [Coreg] 3.125 mg PO BID Atorvastatin [Lipitor] 40 mg PO BEDTIME cefUROXime axetil [Cefuroxime] 250 mg PO BID Promethazine Tab [Phenergan Tab] 25 mg PO Q4HR PRN PRN Reason: Nausea Meloxicam 7.5 mg PO QOTHER DAY Linaclotide [Linzess] 1 - 2 capsule PO DAILY Insulin Detemir [Levemir] 20 units SUBCUT DAILY Fluticasone 50 Mcg Nasal [place] [Flonase Nasal [place]] 2 sprays ONE NARE DAILY PRN PRN Reason: Allergy Symptoms Ezetimibe 10 mg PO DAILY Cholecalciferol (Vitamin D3) [Vitamin D3] 1,000 unit PO DAILY Amitriptyline [Elavil] 10 mg PO BEDTIME Glimepiride 4 mg PO BID Aspirin [Aspirin EC] 81 mg PO DAILY Discontinued Losartan [Cozaar] 50 mg PO BID Isosorbide Mononitrate [Imdur] 30 mg PO DAILY Nitroglycerin [Nitroglycerin SL Tab] 0.4 mg SL DIRECTED PRN PRN Reason: Chest Pain - Follow Up or Referral Follow Up: Edin Meléndez MD [Physician] - (3 weeks with ECG) - Forms/Instructions Instructions: Heart Healthy Diet (GEN), Coronary Artery Bypass Graft, Aircraft Layout Worker (GEN), Sternal Precautions (GEN), Sternal Precautions, Aircraft Layout Worker (GEN) Exam - Constitutional Vitals: Period Temp Pulse Resp BP Sys/Campos Pulse Ox Last 24 Hr 97.6 F-97.9 F 70-76 16-20 101-152/57-69 92-95 Discharge Results Procedures and tests throughout hospitalization: Pending Orders 03/29/17 Red Blood Cells Leuko Red Routine 04/03/17 09:04 US thoracentesis Routine Labs on day of discharge: Labs from last 24 hours 04/05/17 04/05/17 04/04/17 03:27 03:27 20:24 WBC 8.9 RBC 3.58 L Hgb 10.8 L Hct 31.8 L MCV 88.8 MCH 30 MCHC 34.0 RDW 13.9 Plt Count 186 MPV 10.2 Neut % (Auto) 55.7 Lymph % (Auto) 24.6 [place] % (Auto) 12.3 Eos % (Auto) 6.4 Baso % (Auto) 0.3 Neut # (Auto) 5.0 Lymph # (Auto) 2.2 [place] # (Auto) 1.1 H Eos # (Auto) 0.6 Baso # (Auto) 0.0 Total Counted 100 Immature Gran % 0.7 Nucleated RBC % 0.0 Immature Gran # 0.06 Segmented Neutrophils 66 Lymphocytes 14 L Monocytes 10 Eosinophils 8 Basophils 2.0 H Nucleated RBCs # 0.00 Platelet Estimate Normal Hypochromasia 1+ Ovalocytes Slight Elizabeth Cells Slight Sodium 140 Potassium 4.1 Chloride 104 Carbon Dioxide 27 Anion Gap 13.1 BUN 18 Creatinine 0.90 GFR Calculation 67 BUN/Creatinine Ratio 20.00 Glucose 131 H POC Glucose 159 H Calculated Osmolality 282.4 Calcium 8.1 L Magnesium 1.9 04/04/17 04/04/17 04/04/17 16:15 11:11 07:10 WBC RBC Hgb Hct MCV MCH MCHC RDW Plt Count MPV Neut % (Auto) Lymph % (Auto) [place] % (Auto) Eos % (Auto) Baso % (Auto) Neut # (Auto) Lymph # (Auto) [place] # (Auto) Eos # (Auto) Baso # (Auto) Total Counted Immature Gran % Nucleated RBC % Immature Gran # Segmented Neutrophils Lymphocytes Monocytes Eosinophils Basophils Nucleated RBCs # Platelet Estimate Hypochromasia Ovalocytes [place] Cells Sodium Potassium Chloride Carbon Dioxide Anion Gap BUN Creatinine GFR Calculation BUN/Creatinine Ratio Glucose POC Glucose 194 H 171 H 121 H Calculated Osmolality Calcium Magnesium DS: Provider Date of admission: 03/26/17 17:58 Primary care physician: Luis Wiley I Attending physician on admission: Raúl Lakhani MD Consults: 03/26/17 17:16 Consult to Dietitian [CONS] Routine Reason for Dietitian: Other Consult Comment: low salt, low cholesterol, diet 03/30/17 08:00 Consult to Cardiac Rehabilitation [CONS] Routine Reason for Cardiac Rehabilitation: Other Consult Comment: Post CABG/heart surgery Consult to [facility], Educator [CONS] Routine Reason for Specialist Icu: Diabetes Education Initial Insulin Education Consult Comment: insulin education Consult to Dietitian [CONS] Routine Reason for Dietitian: Dietary Consult Consult Comment: Cardiac, low salt, low cholesterol diet Consult to Physical Therapy [CONS] Routine Reason for Physical Therapy: Other Consult Comment: CV Rehab Consult to Physician [CONS] Routine Comment: Management of diabetes Consulting Provider: Consult to Specialist Group: Hospitalist 03/30/17 08:08 Consult to Pharmacy [CONS] Routine Reason for Pharmacy Consult: Adjust Meds Renal Funct 03/31/17 08:28 Consult to Physician [CONS] Routine Comment: s/p CABG, pt req switch to [facility] cards (was [place]) Consulting Provider: Edin Meléndez Person Notified: Joy Date Notified: 03/31/17 Time Notified: 08:38 Discharging clinician: Raúl Lakhani MD Expected date of discharge: 04/05/17
[2017-04-05] MEDS: INSULIN LISPRO 100 UNIT/ML SUBCUT SCH ×2 (07:58→12:32)
[2017-04-05] MEDS: CHOLECALCIFEROL 1,000 UNIT TABLET PO SCH (09:50)
[2017-04-05] MEDS: oxyCODONE/ACETAMINOPHEN 5-325 MG TABLET PO PRN ×2 (09:50→11:02)
[2017-04-05] MEDS: ASPIRIN EC 81 MG TABLET PO SCH (09:50)
[2017-04-05] MEDS: FERROUS SULFATE 325 MG TABLET PO SCH (09:50)
[2017-04-05] MEDS: CARVEDILOL 3.125 MG TABLET PO SCH (09:50)
[2017-04-05] MEDS: PANTOPRAZOLE 40 MG TABLET PO SCH (09:50)
[2017-04-05] MEDS: GLIMEPIRIDE 4 MG TABLET PO SCH (09:50)
[2017-04-05] MEDS: OMEGA 3 ACID ETHYL ESTERS 1 GM CAPSULE PO SCH (09:50)
[2017-04-05] MEDS: INSULIN GLARGINE 100 UNIT/ML SUBCUT SCH (09:50)
[2017-04-05] MEDS: DOCUSATE SODIUM 100 MG CAPSULE PO SCH (09:50)
[2017-04-05] MEDS: CHLORHEXIDINE 0.12% ORAL RINSE 60 ML BOTTLE SWISH/SPIT SCH (09:53)
--- NOTE | 2017-04-05 10:08 | XRay Report ---
XR chest post procedure Indication: Thoracentesis. Post procedure chest radiograph, 2 views: Inspiratory and expiratory views of the chest were obtained. Since earlier yesterday, the left pleural effusion has been reduced significantly. There is some persistent left basilar atelectasis. No pneumothorax shown. Cardiomegaly, median sternotomy wires, central line and clear right lung are stable. Impression: Near-total evacuation of left pleural effusion without pneumothorax. PROCEDURE INTERPRETED AT [facility] DEPARTMENT OF RADIOLOGY Final Report Signed by: Edin Carlisle M.D.
--- NOTE | 2017-04-05 10:10 | Post Interventional Procedure ---
Pre-op diagnosis: Pleural effusion Post-op diagnosis: same Procedure: US guided left thoracentesis Radiologist: Edin Carlisle Anesthesia: local Specimens: none sent Estimated blood loss: none Complications: none Condition: stable Description/Findings: 800 cc old hemorrhage Assessment and Plan - Time spent with patient Time spent with patient: Less than 30 minutes
--- NOTE | 2017-04-05 10:11 | Ultrasound Report ---
US thoracentesis Indication: Left pleural effusion. ULTRASOUND-GUIDED THORACENTESIS Description: A formal timeout was performed. Maximum sterile barrier technique was used. A left pleural effusion was identified with ultrasound. The left back was prepped and draped in sterile fashion. Under sonographic guidance, a 6 [place] pigtail catheter was advanced into the effusion using trocar technique. A captured sonographic image was obtained but unable to transfer to PACS for unknown reason, and therefore no image stored in the system. The needle was removed. Through the catheter, we obtained a total of 900 cc of old hemorrhagic fluid. The catheter was removed. A bandage was placed at the puncture site. The patient tolerated the procedure well. Chest radiograph is pending. Impression: Ultrasound-guided thoracentesis. PROCEDURE INTERPRETED AT [facility] DEPARTMENT OF RADIOLOGY Final Report Signed by: Edin Carlisle M.D.
[2017-04-05 11:23] VITALS: BP 97/59
--- NOTE | 2017-04-05 11:55 | Cardiology Progress Note ---
Assessment and Plan (1) Status post coronary artery bypass graft Status: Chronic Assessment and plan: See plan of care listed below. Current Visit: Yes (2) CAD (coronary artery disease) Status: Chronic Assessment and plan: See plan of care listed below. Current Visit: Yes Qualifiers: Coronary Disease-Associated Artery/Lesion type: bypass graft [place] vs. transplanted heart: redding heart (3) Dyslipidemia Status: Chronic Assessment and plan: See plan of care listed below. Current Visit: Yes (4) DM2 (diabetes mellitus, type 2) Status: Chronic Assessment and plan: See plan of care listed below. 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 Current Visit: Yes (6) Pleural effusion, left Status: Resolved Assessment and plan: See plan of care listed below. 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 George is a 71 year old female who has previously been followed by Dr. Lackey at [place]. She has a history of NM, hypertension, dyslipidemia, and NIDDM. Several months ago she underwent cardiac catheterization by Dr. Lackey who notified two-vessel coronary disease involving the left main and the right posterior descending coronary artery and the patient was considered for bypass surgery but medical therapy was elected at that time. She subsequently had 2 further episodes of chest discomfort. She was admitted to the emergency room where Dr. Lackey was contacted and recommended surgical bypass. She was then transferred to [facility] for CABG. She underwent CABG 03/29/[address] Lakhani with left internal mammary graft to the anterior descending coronary artery and saphenous vein graft to the posterior descending coronary artery. Postop day # 1 she was extubated and chest tubes were removed. She did require several units of blood products post surgery. After surgery, she requested to change to a trim mounter who practices at [facility], Cardiology was then consulted to follow. APRIL 02, 2017: POD 7. Patient continues to progress well. She has been ambulating throughout the hallways today without chest pain, heaviness or tightness. Sternotomy healing well without dehiscence or drainage. Postoperatively, she developed moderate left pleural effusion. Patient underwent ultrasound-guided left thoracentesis earlier today. Tolerated well. Patient is stable and will hopefully be discharged later today. He will be given a follow-up appoint with Dr. Meléndez approximately 3 weeks after discharge. Assessment/plan: 1. STATUS POST CORONARY ARTERY BYPASS GRAFT (GEIGER - LAD, SVG - PDA) - POD 4. Progressing nicely. Plan for discharge home today. Continues to take Aspirin, Atorvastatin, and Carvedilol. ARB was discontinued prior to discharge as patient's blood pressure was unable to tolerate. This may be reinitiated on an outpatient basis. 2. HYPERTENSION - Well-controlled. Continue current plan of care. 3. CAD - Now status post revascularization. Will follow-up with Dr. Meléndez after discharge. 4. DIABETES - Management per hospital medicine. 5. DYSLIPIDEMIA - Low dose Atorvastatin, LDL 39. Zetia has been discontinued this hospitalization. 6. LEFT PLEURAL EFFUSION -now status post ultrasound-guided left thoracentesis. 800 mL was removed. Patient is stable and will hopefully be discharged later today. Exam (Progress Note) - Constitutional Vitals: Period Temp Pulse Resp BP Sys/Campos Pulse Ox Last 24 Hr 97.6 F-98.2 F 70-83 16-20 97-152/45-79 90-96 Exam: General: [Appears well with no apparent distress.] [Pleasant and cooperative. ] [Appears comfortable.] HEENT: [PERRL, normocephalic, atraumatic. Mucous membranes moist. No jaundice noted. Conjunctiva moist and clear, sclerae anicteric] Neck: No JVD/HJR, no thyromegaly or lymphadenopathy noted. No carotid bruit appreciated Cardiac: [Regular rate and rhythm.] [No obvious murmur, rub or gallop.] Sternotomy healing well without dehiscence or drainage. No sternal rocking noted. Mild ecchymosis noted. Lungs: [Clear to auscultation without accessory muscle use to assist the respiratory pattern.] Not requiring oxygen Abdomen: Soft, bowel sounds normoactive. Nontender and nondistended. No abdominal bruit or thrill noted. No masses noted. Musculoskeletal: No fluid collection. Decreased range of motion is noted. Extremities: No clubbing, cyanosis noted. [ No edema noted.] Upper extremity pulses 2+. Lower extremity pulses 2+. Right lower extremity harvest site healing well without dehiscence or drainage. Skin: No unusual lesions or rashes. No skin breakdown appreciated. Neuro: Awake, alert and oriented 3. Moves all extremities well without hemiparesis or paralysis. No essential tremor is appreciated. Result/EKG - Labs CBC & BMP: 04/05/17 03:27 04/05/17 03:27 Lab Results: I have reviewed the past 24 hour labs Labs: Laboratory Results - last 24 hr 04/04/17 04/04/17 04/05/17 16:15 20:24 03:27 WBC 8.9 RBC 3.58 L Hgb 10.8 L Hct 31.8 L MCV 88.8 MCH 30 MCHC 34.0 RDW 13.9 Plt Count 186 MPV 10.2 Neut % (Auto) 55.7 Lymph % (Auto) 24.6 [place] % (Auto) 12.3 Eos % (Auto) 6.4 Baso % (Auto) 0.3 Neut # (Auto) 5.0 Lymph # (Auto) 2.2 [place] # (Auto) 1.1 H Eos # (Auto) 0.6 Baso # (Auto) 0.0 Total Counted 100 Immature Gran % 0.7 Nucleated RBC % 0.0 Immature Gran # 0.06 Segmented Neutrophils 66 Lymphocytes 14 L Monocytes 10 Eosinophils 8 Basophils 2.0 H Nucleated RBCs # 0.00 Platelet Estimate Normal Hypochromasia 1+ Ovalocytes Slight Elizabeth Cells Slight Sodium Potassium Chloride Carbon Dioxide Anion Gap BUN Creatinine GFR Calculation BUN/Creatinine Ratio Glucose POC Glucose 194 H 159 H Calculated Osmolality Calcium Magnesium 04/05/17 04/05/17 04/05/17 03:27 07:12 11:12 WBC RBC Hgb Hct MCV MCH MCHC RDW Plt Count MPV Neut % (Auto) Lymph % (Auto) [place] % (Auto) Eos % (Auto) Baso % (Auto) Neut # (Auto) Lymph # (Auto) [place] # (Auto) Eos # (Auto) Baso # (Auto) Total Counted Immature Gran % Nucleated RBC % Immature Gran # Segmented Neutrophils Lymphocytes Monocytes Eosinophils Basophils Nucleated RBCs # Platelet Estimate Hypochromasia Ovalocytes [place] Cells Sodium 140 Potassium 4.1 Chloride 104 Carbon Dioxide 27 Anion Gap 13.1 BUN 18 Creatinine 0.90 GFR Calculation 67 BUN/Creatinine Ratio 20.00 Glucose 131 H POC Glucose 106 163 H Calculated Osmolality 282.4 Calcium 8.1 L Magnesium 1.9 Quality Measures - VTE Contraindication to Pharmacological VTE Prophylaxis: High Risk of Bleeding Specialty Discharge - Follow Up or Referrals Follow up with: Edin Meléndez MD [Physician] - 04/26/17 8:40 am (3 weeks with ECG) Raúl Lakhani MD [Physician] - 05/04/17 10:15 am
== END 2017-04-05 13:32 | disposition home or self-care (01) | DRG 236 ==
LOC: N.TELES 17:58 → N.CVR 03-29 09:05 → N.TELES 03-30 10:56
PROC: IRTHORA (2017-04-05 09:10)

== ENCOUNTER 2017-11-06 06:08 | Observation (INO) ==
[2017-11-06] MEDS ORDERED: MORPHINE 2 MG/1 ML SYRINGE IV PRN (06:26)
[2017-11-06] MEDS ORDERED: ONDANSETRON 4 MG/2 ML VIAL IV PRN (06:26)
[2017-11-06] MEDS ORDERED: ENOXAPARIN 80 MG/0.8 ML SYRINGE SUBCUT STA (06:30)
[2017-11-06] MEDS ORDERED: NITROGLYCERIN 2% OINT 1 INCH/GM PACK TOP STA (06:30)
[2017-11-06] MEDS ORDERED: NITROGLYCERIN 2% OINT 1 INCH/GM PACK TOP ONE (06:53)
[2017-11-06] MEDS ORDERED: ENOXAPARIN 40 MG/0.4 ML SYRINGE ONE (06:53)
[2017-11-06] MEDS ORDERED: ENOXAPARIN 30 MG/0.3 ML SYRINGE ONE (06:53)
[2017-11-06 07:03] LABS: Basophils % 0.3 % (0.0-0.8); Eosinophils # 0.2 10*3/uL (0.0-0.87); Eosinophils % 3.2 % (0.00-10.9); Hematocrit 35.9 VOL% (35.7-47.0); Hemoglobin 12.7 GM/DL (12.0-16.0); Immature Granulocytes % 0.3 %; Immature Granulocytes Absolute 0.02 #; Mean Corpuscular HGB Conc 35.4 GM/DL (32-36); Mean Corpuscular Hemoglobin 32 PG (27-34); Mean Corpuscular Volume 90.7 FL (87-102); Mean Platelet Volume 9.7 FL (9.6-12.0); Monocytes # 0.7 10*3/uL (0.11-0.8); Monocytes % 10.2 % (1.7-12.7); Neutrophils # 3.6 10*3/uL (1.4-7.4); Platelet Count 189 T/CUMM (130-400); Red Blood Count 3.96 MC/CUMM (3.8-5.5); Red Cell Distribution Width 12.7 % (9.3-17.3); White Blood Count 6.5 T/CUMM (4-12)
[2017-11-06 07:17] LABS: PT Patient Result 10.9 SECS; Partial Thromboplastin Time 25.2 SECS (0-40)
[2017-11-06 07:20] LABS: Apearance,Urine CLEAR (Clear); Bacteria,Urine Many /HPF (Few); Bilirubin,Urine Negative (Negative); Blood, Urine Negative (Negative); Glucose,Urine (UA) Negative (Negative); Ketones,Urine Negative (Negative); Mucus,Urine Occasional /LPF (Occasional); Nitrite,Urine Negative (Negative); Protein,Urine Negative; RBC,Urine <1 /HPF (0-4); Urine Color Yellow (Yellow); Urine Specific Gravity 1.005 (1.001-1.035); WBC,Urine 50 /HPF (0-6)
[2017-11-06 07:36] LABS: Albumin 3.6 G/DL (3.4-5.0); Bilirubin,Total 0.8 MG/DL (0.2-1.0); Calcium 8.6 MG/DL (8.5-10.1); Osmolality,Calculated 281.4 MOS/KG (273-304); Potassium 4.2 MMOL/L (3.5-5.1)
[2017-11-06] MEDS ORDERED: GENTAMICIN INJ 120 MG in SODIUM CHLORIDE 0.9% 100 ML IV STA (07:56)
[2017-11-06] MEDS ORDERED: GENTAMICIN 80 MG/2 ML VIAL ONE ×2 (07:57→07:58)
[2017-11-06] MEDS ORDERED: INFLUENZA VIRUS VACCINE 0.5 ML SYRINGE IM ONE (11:07)
[2017-11-06] MEDS ORDERED: CETIRIZINE 10 MG TABLET PO PRN (16:06)
[2017-11-06] MEDS ORDERED: FLUTICASONE 50 MCG NASAL SPRAY 16 GM BOTTLE BOTH NARES PRN (16:06)
[2017-11-06] MEDS ORDERED: PSEUDOEPHEDRINE 30 MG TABLET PO PRN (16:21)
[2017-11-06] MEDS ORDERED: ATORVASTATIN 40 MG TABLET PO SCH (21:00)
[2017-11-06] MEDS ORDERED: AMITRIPTYLINE 10 MG TABLET PO SCH (21:00)
[2017-11-06] MEDS ORDERED: MONTELUKAST 10 MG TABLET PO SCH (21:00)
[2017-11-06] MEDS: GLIMEPIRIDE 4 MG TABLET PO SCH (21:25)
[2017-11-06] MEDS: CARVEDILOL 6.25 MG TABLET PO SCH (21:25)
[2017-11-06] MEDS: OMEGA 3 ACID ETHYL ESTERS 1 GM CAPSULE PO SCH (21:25)
[2017-11-07] MEDS ORDERED: LINACLOTIDE 145 MCG CAPSULE PO SCH (09:00)
[2017-11-07] MEDS ORDERED: ASCORBIC ACID 500 MG TABLET PO SCH (09:00)
[2017-11-07] MEDS ORDERED: ASPIRIN EC 81 MG TABLET PO SCH (09:00)
[2017-11-07] MEDS ORDERED: CHOLECALCIFEROL 1,000 UNIT TABLET PO SCH (09:00)
[2017-11-07] MEDS ORDERED: LOSARTAN 50 MG TABLET PO SCH (09:00)
[2017-11-07] MEDS: CARVEDILOL 6.25 MG TABLET PO SCH (09:37)
[2017-11-07] MEDS: OMEGA 3 ACID ETHYL ESTERS 1 GM CAPSULE PO SCH (09:38)
[2017-11-07] MEDS: GLIMEPIRIDE 4 MG TABLET PO SCH (09:39)
[2017-11-07 13:06] VITALS: BP 130/70
[2017-11-08] MEDS ORDERED: MELOXICAM 7.5 MG TABLET PO SCH (09:00)
== END 2017-11-07 13:58 | disposition home or self-care (01) ==
LOC: N.EDINP 06:08 → N.ED 06:08 → N.EDINP 09:08 → N.TELES 09:17
PROVIDERS: ADMIT Internal Medicine Cardiovascular Disease; ATTEND Internal Medicine Cardiovascular Disease